=== PATIENT | female | born 1990 | race Caucasian/White ===

== ENCOUNTER 2023-06-19 15:03 | Outpatient (AMB) | payer OTHER, SELFPAY ==
--- NOTE | 2023-06-19 15:06 | A.OFFVIS_ITS ---
Intake Vital Signs 06/19/23 15:15 Height 5 ft 7 in Weight 189 lb BMI 29.6 BP 96/62 Blood Pressure Location Rt brachial Position Sitting Pulse 80 Pulse Source Pulse Oximeter Pulse Oximetry (%) 97 Oxygen Delivery Method Room Air Intake Visit Reasons: E-FRAUD REPRESENTATIVE: Daytime Somnolence/ Parasomnia/ Migraine Intake Note: NPV Sleep issues but Migraine are the worst right now Laundry Routeman Required: No Allergies gluten Allergy (Severe, Uncoded 06/19/23 15:10) Diarreah pineapple Allergy (Severe, Uncoded 06/19/23 15:10) toung swelling HPI HPI Comments History of Present Illness Details 32 y/o female patient presents for new in-person visit for migraine and sleep consultation. Pt reports that she underwent PSG sleep study and was told that her sleep was unremarkable. Pt reports that she has difficulty falling asleep and staying sleep. She also reports chronic migraine, has 3-4 migraine days per week during school year, but not summer break. 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 Pt states that she has migraine for her entire life. Family hx of migraine, pt's mother and her sister has it. Pt tried nortriptyline for migraine prevention, but it did not helpful. She started topiramate 25 mg couple of months ago, and feels it helps a little to decrease the migraine frequency. She thinks that the school work stress mostly triggers her migraine, and it is associated with left eye vision changes, left jaw and neck pain. She uses eletriptan and it helps to relieve the migraine in 2 hours, but make her sick, nausea and dizziness. She tried sumatiptan and also rizatirptan, but she did not tolerated. Pt has hx of shoulder injury and herniated disk, and tried physical therapy. However, physical therapy made her migraine worse. She does yoga and goes to gym regularly. PFSH Surgical History (Updated 06/19/23 @ 15:14 by Joleen Garcia CMA) IUD (intrauterine device) in place Social History (Updated 06/19/23 @ 15:15 by Joleen Garcia CMA) Alcohol intake: never Patient Tobacco Use Status: Never used Tobacco Review of Systems Const All systems reviewed & are unremarkable except as noted in HPI and below ENT Reports Normal hearing present Neuro Reports Normal hearing present Physical Exam Vital Signs: Last Vital Signs Pulse 80 06/19/23 15:15 BP 96/62 08/23/23 15:15 Pulse Ox 97 06/19/23 15:15 Oxygen Delivery Method Room Air 06/19/23 15:15 BMI result Body Mass Index 29.6 Const General: cooperative and healthy appearing Nutritional Appearance: overweight Orientation/consciousness: patient oriented x3 Neck Neck: Yes full ROM and Yes supple Resp Effort & Inspection: normal respiratory effort and able to speak in complete sentences Neuro General: patient oriented x3, gait normal and no focal motor deficits Cranial nerves: Yes Bilaterally intact EOM present, Yes Normal facial strength present, Yes Midline tongue present, Yes Symmetric palate elevation present, Yes Normal hearing present, Yes Ability to bilaterally rotate head present and Yes Ability to bilaterally elevate shoulders present Cognition (Neuro): normal cognition Gait exam (Neuro): Normal gait present Motor exam (neuro): 5/5 motor strength present throughout, Pronator motor function not present and no tremor noted Psych Appearance: grossly normal Mental Status: mental status grossly normal Speech and movement: Normal speech and movement present Affect: normal affect Attitude: cooperative Assessment & Plan Assessment & Plan (1) Difficulty sleeping: Code(s): G47.9 - Sleep disorder, unspecified (2) Migraine with aura and without status migrainosus, not intractable: Code(s): G43.109 - Migraine with aura, not intractable, without status migrainosus Plan Advised patient to increase topiramate to 50 mg qHS for migraine prevention and promote sleep. She may try magnesium and vitamin B2 supplement for migraine prevention. Start Nurtec 75 mg as needed for acute migraine treatment due to patient did not tolerate with triptans. Continue to do yoga and exercise regularly. Advised patient to track migraine frequency and intensity. Medications: New topiramate 50 mg PO BEDTIME 30 days 30 tabs 3RF rimegepant (Nurtec ODT) 75 mg PO Q OTHER DAY 30 days PRN 14 tabs 6RF migraine headache Coding Level of Care Code New Pt Level 4 (93846) Diagnoses Difficulty sleeping G47.9 Migraine with aura and without status migrainosus, not intractable G43.109
[2023-06-19 15:15] VITALS: BP 96/62; PULSE 80; O2SAT 97; BMI 29.6
== END 2023-06-19 15:54 | disposition home or self-care (01) ==
PROVIDERS: PCP Family Medicine; Visit Provider Nurse Practitioner Family
DX: G47.9 Sleep disorder, unspecified (principal); G43.109 Migraine with aura, not intractable, without status migrainosus
CPT/HCPCS: 99204

== ENCOUNTER → 2023-06-19 15:03 | Outpatient (BNVA) | payer OTHER, SELFPAY | PROVIDERS: PCP Family Medicine; Visit Provider Nurse Practitioner Family ==

== ENCOUNTER 2023-10-02 14:25 | Outpatient (AMB) | payer OTHER, SELFPAY ==
--- NOTE | 2023-10-02 14:58 | A.OFFVIS_ITS ---
Intake Vital Signs 10/02/23 14:59 Height 5 ft 7 in Weight 187 lb 6 oz BMI 29.3 BP 118/70 Blood Pressure Location Rt brachial Position Sitting Respiration 16 Pulse 78 Pulse Source Pulse Oximeter Pulse Oximetry (%) 98 Oxygen Delivery Method Room Air Intake Visit Reasons: 4m f/u Daytime Somnolence/ Parasomnia/ Migraine Intake Note: Pt presents for a 4 month follow up for daytime somnolence. 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 Pt reports that her migraine frequency and intensity has improved with topiramate 50 mg qHS, magnesium 400 mg and vitamin B2 400 mg. She had 1-2 migraine days per week and Nurtec relieve the migraine quick. Pt reports that she still has difficulty falling asleep and staying sleep. Still having difficulty falling asleep. She tried melatonin couple of times, and seems it helped, but she does not want to every night. Pt practice good sleep hygiene, having routine sleep schedule, limit caffeine intake and electronic use and daily exercise. She does yoga and goes to gym regularly. Pt has hx of shoulder injury and herniated disk, and tried physical therapy. However, physical therapy made her migraine worse. COUNTS INCLUDE 234 BEDS AT THE [facility] Surgical History IUD (intrauterine device) in place Social History Alcohol intake: never Patient Tobacco Use Status: Never used Tobacco Review of Systems Const All systems reviewed & are unremarkable except as noted in HPI and below ENT Reports Normal hearing present Neuro Reports Normal hearing present Physical Exam Vital Signs: Last Vital Signs Pulse 78 10/02/23 14:59 Resp 16 10/02/23 14:59 BP 118/70 10/02/23 14:59 Pulse Ox 98 10/02/23 14:59 Oxygen Delivery Method Room Air 10/02/23 14:59 BMI result Body Mass Index 29.3 Const General: cooperative and healthy appearing Nutritional Appearance: overweight Orientation/consciousness: patient oriented x3 Neck Neck: Yes full ROM and Yes supple Resp Effort & Inspection: normal respiratory effort and able to speak in complete sentences Neuro General: patient oriented x3, gait normal and no focal motor deficits Cranial nerves: Yes Bilaterally intact EOM present, Yes Normal facial strength present, Yes Midline tongue present, Yes Symmetric palate elevation present, Yes Normal hearing present, Yes Ability to bilaterally rotate head present and Yes Ability to bilaterally elevate shoulders present Cognition (Neuro): normal cognition Gait exam (Neuro): Normal gait present Motor exam (neuro): 5/5 motor strength present throughout, Pronator motor function not present and no tremor noted Psych Appearance: grossly normal Mental Status: mental status grossly normal Speech and movement: Normal speech and movement present Affect: normal affect Attitude: cooperative Assessment & Plan Assessment & Plan (1) Difficulty sleeping: Code(s): G47.9 - Sleep disorder, unspecified (2) Migraine with aura and without status migrainosus, not intractable: Code(s): G43.109 - Migraine with aura, not intractable, without status migrainosus Plan Advised patient to continue to topiramate to 50 mg qHS for migraine prevention and promote sleep. Continue to magnesium and vitamin B2 supplement for migraine prevention. Nurtec 75 mg as needed for acute migraine treatment due to patient did not tolerate with triptans. Continue to do yoga and exercise regularly. Continue to practice good sleep hygiene and try Calm Sleep gummy. Advised patient to track migraine frequency and intensity. Coding Level of Care Code Est Pt Level 3 (82916) Diagnoses Difficulty sleeping G47.9 Migraine with aura and without status migrainosus, not intractable G43.109
[2023-10-02 14:59] VITALS: BP 118/70; PULSE 78; RESP 16; O2SAT 98; BMI 29.3
== END 2023-10-02 15:17 | disposition home or self-care (01) ==
PROVIDERS: PCP Family Medicine; Visit Provider Nurse Practitioner Family
DX: G47.9 Sleep disorder, unspecified (principal); G43.109 Migraine with aura, not intractable, without status migrainosus
CPT/HCPCS: 99213

== ENCOUNTER → 2023-10-02 14:25 | Outpatient (BNVA) | payer OTHER, SELFPAY | PROVIDERS: PCP Family Medicine; Visit Provider Nurse Practitioner Family ==

== ENCOUNTER 2024-10-27 14:27 | Outpatient (AMB) | payer OTHER, SELFPAY ==
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
== END 2024-10-27 14:58 | disposition home or self-care (01) ==
PROVIDERS: PCP Family Medicine; Visit Provider Physician Assistant Medical
DX: G43.109 Migraine with aura, not intractable, without status migrainosus (principal); G25.81 Restless legs syndrome; R20.0 Anesthesia of skin; R20.2 Paresthesia of skin
CPT/HCPCS: 99214

== ENCOUNTER → 2024-10-27 14:27 | Outpatient (BNVA) | payer OTHER, SELFPAY | PROVIDERS: PCP Family Medicine; Visit Provider Physician Assistant Medical ==

== ENCOUNTER 2024-11-26 14:43 | Outpatient (REF) | payer OTHER, SELFPAY ==
--- NOTE | 2024-11-26 14:48 | EMG_ITS ---
Chief complaint: Pain and paresthesias bilateral thumb, left worse than right Reason for referral: Evaluate for Carpal Tunnel Syndrome Referred by: Chago STODDARD Procedure done: Bilateral upper extremities NCS/EMG Precautions and/or limitations: None The limb temperature was monitored continuously and remained between 32-36 degrees C during the performance of the NCS. Nerve Conduction Studies Anti Sensory Summary Table ?Stim Site NR Onset (ms) Norm Onset (ms) Peak (ms) Norm Peak (ms) O-P Amp (?V) Norm O-P Amp Site1 Site2 Delta-0 (ms) Dist (cm) Toby (m/s) Norm Toby (m/s) Left Median Anti Sensory (2nd Digit) Wrist ? 2.3 3.2 <3.6 16.1 >10 Wrist 2nd Digit 2.3 14.0 61 Right Median Anti Sensory (2nd Digit) Wrist ? 2.2 3.1 <3.6 47.4 >10 Wrist 2nd Digit 2.2 14.0 64 Left Ulnar Anti Sensory (5th Digit) Wrist ? 1.9 2.9 <3.7 30.2 >15.0 Wrist 5th Digit 1.9 14.0 74 Right Ulnar Anti Sensory (5th Digit) Wrist ? 2.3 3.1 <3.7 21.0 >15.0 Wrist 5th Digit 2.3 14.0 61 Motor Summary Table ?Stim Site NR Onset (ms) Norm Onset (ms) O-P Amp (mV) Norm O-P Amp iAmp (mV) Amp (1st) (%) Site1 Site2 Delta-0 (ms) Dist (cm) Toby (m/s) Norm Toby (m/s) Left Median Motor (Abd Poll Brev) Wrist ? 3.4 <3.9 6.3 >4.5 7.5 100.0 Elbow Wrist 3.7 21.5 58 >45 Elbow ? 7.1 8.6 10.2 136.5 Right Median Motor (Abd Poll Brev) Wrist ? 3.4 <3.9 13.1 >4.5 15.7 100.0 Elbow Wrist 3.7 21.0 57 >45 Elbow ? 7.1 12.9 15.7 98.5 Left Ulnar Motor (Abd Dig Minimi) Wrist ? 2.7 <3.0 8.7 >5 10.9 100.0 B Elbow Wrist 3.4 19.0 56 >45 B Elbow ? 6.1 7.4 9.3 85.1 A Elbow B Elbow 1.2 10.0 83 >45 A Elbow ? 7.3 7.3 9.1 83.9 Right Ulnar Motor (Abd Dig Minimi) Wrist ? 2.9 <3.0 8.5 >5 9.4 100.0 B Elbow Wrist 3.0 18.0 60 >45 B Elbow ? 5.9 9.5 10.6 111.8 A Elbow B Elbow 1.1 10.0 91 >45 A Elbow ? 7.0 9.3 10.5 109.4 Comparison Summary Table ?Stim Site NR Peak (ms) Norm Peak (ms) P-T Amp (?V) Site1 Site2 Delta-P (ms) Norm Delta (ms) Left Median/Radial Dig I Comparison (Digit 1 - 10cm) Median ? 2.5 <2.9 110.9 Median Radial 0.2 Radial ? 2.7 <2.8 121.6 EMG ?Side Muscle Nerve Root Ins Act Fibs Psw Amp Dur Poly Recrt Int Pat Comment Right 1stDorInt Ulnar C8-T1 Nml Nml Nml Nml Nml 0 Nml Complete Right FlexCarRad Median C6-7 Nml Nml Nml Nml Nml 0 Nml Complete Right Biceps Musculocut C5-6 Nml Nml Nml Nml Nml 0 Nml Complete Right Triceps Radial C6-7-8 Nml Nml Nml Nml Nml 0 Nml Complete Right Deltoid Axillary C5-6 Nml Nml Nml Nml Nml 0 Nml Complete Left 1stDorInt Ulnar C8-T1 Nml Nml Nml Nml Nml 0 Nml Complete Left FlexCarRad Median C6-7 Nml Nml Nml Nml Nml 0 Nml Complete Left Biceps Musculocut C5-6 Nml Nml Nml Nml Nml 0 Nml Complete Left Triceps Radial C6-7-8 Nml Nml Nml Nml Nml 0 Nml Complete Left Deltoid Axillary C5-6 Nml Nml Nml Nml Nml 0 Nml Complete FINDINGS: All motor and sensory nerves tested showed normal latencies, amplitudes and conduction velocities. Concentric needle EMG was performed in selected muscles of the bilateral upper extremities. Study did not reveal signs of electric abnormalities as shown in the table above. IMPRESSION: 1. This is a normal study. 2. There is no electrodiagnostic evidence for median neuropathy, ulnar neuropathy, brachial plexopathy, or cervical radiculopathy. Thank you for your kind referral. Latricia Matos MD, [place] Board Certified, [place] [employer] and [employer] (ABPMR) Board Certified, [place] Board of Electrodiagnostic Medicine (ABEM) CODIN [phone] x 2 MTDD
--- OUTSIDE RECORDS SUMMARY | 2024-11-26 18:39 | XMS_ITS | Clinical Summary ---
Author Organization [address] Address [address] [place] [address] Care Team Providers Care Warehouse Laborer Name Role Phone Zuleika Raza MD Primary Care Provider + Allergies Active Allergy Reactions Criticality Noted Date Comments Gluten Protein 06/10/2012 Pineapple 01/25/2015 Wheat 06/10/2012 Medications norgestimate-et hinyl estradiol (ORTHO TRI-CYCLEN,TRI- SPRINTEC) 0.18/0.215/0.25 mg-35 mcg (28) tablet Take 1 tablet by mouth daily. Active ibuprofen (ADVIL,MOTRIN) 100 mg/5 mL suspension Take 200 mg by mouth every 4 (four) hours as needed. Do not use more than 4 times per day. Active naproxen (NAPROSYN) 500 MG tablet Take 500 mg by mouth 2 (two) times daily with breakfast and dinner. Active tiZANidine (ZANAFLEX) 2 MG tablet Take 2 mg by mouth every 8 (eight) hours. Active mometasone (NASONEX) 50 mcg/actuation nasal spray 2 sprays by Nasal route daily. Active zinc gluconate 50 mg tablet Take 50 mg by mouth daily. Active lactobacillus rhamnosus, GG, (CULTURELLE) 10 billion cell capsule Take 1 capsule by mouth daily. Active ketoconazole (NIZORAL) 2 % cream Apply to affected area on eyebrows and around nose daily 60 g 2 5 Active Active Problems Problem Noted Date Diagnosed Date Back pain 10/15/2012 Family History Medical History Relation Name Comments Melanoma Maternal Grandmother Relation Name Status Comments Maternal Grandmother Social History Tobacco Use Types Packs/Day Years Used Date Smoking Tobacco: Never Alcohol Use Standard Drinks/Week Comments No 0 (1 standard drink = 0.6 oz pur e alcohol) Comments Unknown Sex and Gender Information Value Date Recorded Sex Assigned at Not on file Legal Sex Female 8:06 AM EST Gender Identity Not on file Sexual Orientation Not on file 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 Not on file Not on file Last Filed Vital Signs Vital Sign Reading Time Taken Comments Blood Pressure 95/64 10/15/2012 1:32 PM EST Pulse - - Temperature - - Respiratory Rate - - Oxygen Saturation - - Inhaled Oxygen Concentration - - Weight 67.6 kg (149 lb) 10/15/2012 1:32 PM EST Height 170.2 cm (5' 7 ) 10/15/2012 1:32 PM EST Body Mass Index 23.34 10/15/2012 1:32 PM EST Plan of Treatment Health Maintenance Due Date Last Done Comments HIV screening 2005 Hepatitis C screening 2010 Tetanus adult (Td q 10,TDAP once) 2012 Cervical cancer screening 2013 Influenza vaccine 05/28/2024 Covid-19 vaccine series (2023-25 season) 2024 RSV Discussion (1 - 1-dose 7 5+ series) 2067 Meningococcal Vaccine Aged Out No misty betty eligible based on patient's age to complete this topic Pneumococcal Vaccine Aged Out No long er eligible based on patient's age to complete this topic Insurance on file on file on file on file Care Teams Warehouse Laborer Relationship Specialty Start Date End Date Zuleika Raza MD PCP - General Internal Medicine 01/18/15
--- OUTSIDE RECORDS SUMMARY | 2024-11-26 18:39 | XMS_ITS | Clinical Summary ---
Author Organization [facility] Address [address] [place] [address] Care Team Providers Care Pet Sitting Name Role Phone Alea Brush MD Primary Care Provider Airam vailable Social History Tobacco Use Types Packs/Day Years Used Date Smoking Tobacco: Never Assessed Sex and Gender Information Value Date Recorded Sex Assigned at Not on file Gender Identity Not on file Sexual Orientation Not on file Plan of Treatment Not on file Care Teams Pet Sitting Relationship Specialty Start Date End Date Alea Brush MD PCP - General Internal Medicine 07/21/18
--- OUTSIDE RECORDS SUMMARY | 2024-11-26 18:39 | XMS_ITS | Encounter Summary ---
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 Not on file Not on file documented as of this encounter Last Filed Vital Signs Vital Sign Reading Time Taken Comments Blood Pressure - - Pulse - - Temperature - - Respiratory Rate - - Oxygen Saturation - - Inhaled Oxygen Concentration - - Weight 71.8 kg (158 lb 4.6 oz) 04/19/2010 12:01 AM EDT Height - - Body Mass Index - - documented in this encounter Plan of Treatment Not on file documented as of this encounter Visit Diagnoses Not on filedocumented in this encounter Care Teams Wire Sawyer Relationship Specialty Start Date End Date Zuleika Raza MD PCP - General Internal Medicine 01/18/15 documented as of this encounter
--- OUTSIDE RECORDS SUMMARY | 2024-11-26 18:39 | XMS_ITS | Clinical Summary ---
Author Organization [facility] Address [address] [place] [id number] Care Team Providers Care Radiation Technician Name Role Phone Unavailable Primary Care Provider Unavailabl e Social History Tobacco Use Types Packs/Day Years Used Date Smoking Tobacco: Never Assessed Sex and Gender Information Value Date Recorded Sex Assigned at Not on file Gender Identity Not on file Sexual Orientation Not on file Plan of Treatment Health Maintenance Due Date Last Done Comments Hepatitis C Virus Screening 1992 HIV Screening 2005 DTaP/Tdap/Td Vaccines (1 - Tdap) 2011 Hepatitis B Vaccines (1 of 3 - 19+ 3-dose series) 2011 COVID-19 Vaccine ( - 2023- season) 2024 Influenza Vaccine Discontinued 09/13/2021, 08/17/2020 HPV Vaccines Aged Out No longer eligi ble based on patient's age to complete this topic Pneumococcal Vaccine: Pediatric (0-5 Years) and At-Risk Patients (6 to 49 Years) Aged Out No longer eligible b ased on patient's age to complete this topic
--- OUTSIDE RECORDS SUMMARY | 2024-11-26 18:39 | XMS_ITS | Data Portability ---
Author Organization [facility], [facility], Primary Care [facility] Address [address] [address] Assessment No assessment recorded. Plan of Treatment Reminders Order Date Submit Date Provider Last Modified By Organization Details Last Modified Time Details Appointments None recorded. Lab protein S Ag, total, plasma [address] [facility], [address] [place] [address], [address], 6 08:43:22 unlisted lab - anti-throm bin3 2015 016 [facility], [address] [place] [address], [address], 6 14:47:15 homocystei ne, serum or plasma 2015 016 [facility], [address] [place] [address], [address], 6 13:02:12 factor V activity, plasma 2015 016 [facility], [address] [place] [address], [address], 6 13:02:12 protein C Ag, total, plasma 2015 016 [facility], [address] [place] [address], [address], 6 08:49:03 CBC 2015 016 [facility], [address] [place] [address], [address], 6 13:02:12 CMP, serum or plasma 2015 016 [facility], [address] [place], [address], 7 08:05:31 lipid panel, serum 2015 016 [facility], [address] [place], [address], 6 13:02:12 folate, serum 2015 016 [facility], [address] [place], [address], 6 13:02:12 vitamin D, 25-hydroxy , total, serum 2015 016 [facility], [address] [place], [address], 6 13:02:12 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 Surgeries None recorded. Imaging None recorded. Medication Orders None recorded. Patient TargetsNo targets recorded. Patient InstructionsNo instructions recorded. Reason for Referral left shoulder pain ,limiting rom, started 4 months ago, no traume history Referring Physician: Florence Montoya MD, Internal Medicine, Encounter Date: 12/22/2016 left hand numbness and tingl ing radiating to the palm Referring Physician: Florence Montoya MD, Internal Medicine, Encounter Date: 12/22/2016 Results Created Date Observation Date Name Description Value Unit Range Abnormal Flag Note LastModifiedBy Organization Detail LastModifiedTime Result Notes None recorded. Problems Name Problem SNOMED Code Status Onset Date Resolution Date Notes Provider Name and Address Organization Details Recorded Time Hyperlipidemia 07680874 Active Joelle Catherine lópez [facility], [facility] 6 14:36:14 Celiac disease 018721597 Active Bren chamorro Catherine lópez [facility], [facility] 6 14:36:14 Problem Notes None recorded. Procedures Surgical History Date Name Laterality Status Provider Name and Address Organization Details Recorded Time 5 Tonsillectomy completed Yanet Barros [facility], [facility] 03/14/2016 15:36:18 Imaging Results None recorded. Procedure Notes None recorded. Medical Equipment None Reported. Allergies Allergen ID Allergen Name Allergen Category Reaction Reaction Severity Criticality Documentation Date Start Date Code Code System Note Provider Name and Address Organization Details Recorded Time 248233 wheat gluten extract food Not available Not available Not available 03/14/2016 10362 81 RxNorm Yanet lópez [facility] Juan [facility], [facility] 6 15:36:18 Medications Name Sig Start Date Stop Date Status Note LastModified by Organization Details LastModified Time hydrocodone 5 mg-acetaminoph en 325 mg tablet active Not Available Not Available Not Available fluconazole 200 mg tablet active Not Available Not Availabl e Not Available Tamiflu 75 mg capsule active Not Available Not Available Not Available tramadol 50 mg tablet active Not Available Not Available Not Available lidocaine HCl 2 % mucosal solution active Not Available Not Available Not Available Vitals Date Recorded Oxygen saturation Oxygen saturation in Arterial blood by Pulse oximetry Heart rate Respiratory rate Body mass index (BMI) Body weight Body temperature Body height Systolic blood pressure Diastolic blood pressure Provider Name and Address Organization Details Last Updated DateTime 6 99 % 99 % 72 /min 16 /min 27.9 kg/m2 73054.4 8001 g 98.5 [degF] 167.64 cm 90 mm[Hg] 66 mm[Hg] Yanet [place] Juan [facility], [facility] 6 15:36:18 Date Recorded Body height Provider Name an d Address Organization Details Last Updated DateTime 12/22/2016 167.64 cm Lien Vivienne [place] [facility] 12/22/2016 08:37:15 Date Recorded Body weight Body mass index (BMI) Provider Name and Address Organization Details Last Updated DateTime 12/22/2016 86245.93 g 27 kg/m2 Lien Gutierrezjoe [place] [facility] 12/22/2016 08:37:36 Date Recorded Body temperature Provider Name a nd Address Organization Details Last Updated DateTime 12/22/2016 98.2 [degF] Lien Palafox [facility], [facility] 12/22/2016 08:37:42 Date Recorded Heart rate Provider Name an d Address Organization Details Last Updated DateTime 12/22/2016 82 /min Lien Palafox [facility], [facility] 12/22/2016 08:38:32 Date Recorded Oxygen saturation Oxygen saturation in Arterial blood by Pulse oximetry Provider Name and Address Organization Details Last Updated DateTime 12/22/2016 98 % 98 % [facility] 12/22/2016 08:38:36 Date Recorded Systolic blood pressure Diastolic blood pressure Provider Name and Address Organization Details Last Updated DateTime 12/22/2016 100 mm[Hg] 70 mm[Hg] [facility] 12/22/2016 08:38:30 Social History Question Answer Notes LastModified by Organizat ion Details LastModified Time Tobacco Smoking Status Never Smoker [facility] 03/14/2016 15:36:18 What Is Your Level Of Alcohol Consumption? None Information not available 03/14/2016 What Is Your Level Of Caffeine Consumption? Moderate 2 Cups Tea Per Day Information not available 03/14/2016 Which Illicit Or Recreational Drugs Have You Used? Denies Information not available 03/14/2016 How Much Tobacco Do You Smoke? No Information not available 03/14/2016 How Many Years Have You Smoked Tobacco? 0 Information not available 03/14/2016 Sex: Unknown Functional Status None recorded. Mental Status None recorded. Family History Relationship Description Onset Age of this Age Resolved Age Notes LastModified by Organization Details LastModified Time Father Pulmonary embolism srieger Not available 2015 15:39:13 Father Factor V deficiency nereida martinez Not available 03/14/2016 15:39:13 Medical History Condition Response Gout N High Blood Pressure N Thyroid problems N Asbestos exposure N Colonoscopy N Glaucoma N COPD N Migraine Headaches N Kidney disease or problem N Bleeding tendencies N Seizures, convulsions, epilepsy N Depression, mental illness N Obesity N Arthritis N Angina pectoris N Cancer N Stroke N High cholesterol N Blood clotting in lungs or legs N Venereal disease N Vitamin deficiency N Arrhythmia N Fibromyalgia N Jaundice or liver disease N Intestinal Problems - Ulcer, Hiatal Johnathon ia Y Rheumatic fever N Congestive heart failure N Acid Reflux N Osteopenia or osteoporosis N Lyme Disease N Any complications or ill effects related to an anesthetic N Palpitation N Anxiety disorder N Auto-immune disease N Anemia N Diabetes N Bladder disease N Alcoholism/Substance Abuse N Lung disease (pneumonia, TB, emphysema) N Fainting spells N Heart disease N Heart Attack N Breast disease N Sickle cell disease N Any blood relative who had anesthesia co mplications N Sleep Apnea N Gynecological History Statement/Question Response Last Pap Normal? Y Date of Last Pap Smear? 2014 Obstetrics History GPAL:G 0 P 0 0 0 0 Past Encounters Encounter ID Performer Location Encounter Start Date Encounter Closed Date Diagnosis/Indication Diagnosis SNOMED-CT Code Diagnosis ICD10 Code Diagnosis Note [id number] Joelle [facility] [address] [address] 03/14/2016 15:28:09 03/14/2016 16:13:53 Adult health examination 854510660 Z00.00 Pt is here to establish care will check baseline blood work - further management depending on results Hyperlipidemia 86781243 E78.5 Family his tory of Blood disorder 194126494 Z83.2 Father was recently diagnosed with Factor V Leiden def after an episode of PE She is non smoker, not on OCPs will screen for inherited coagulatio n disorders Celiac disease 025002019 K90.0 diagnosed with blood work and biopsy free of symptoms and follows a strict gluten free diet [id number] [facility] [address] [address] 12/22/2016 08:33:37 12/22/2016 09:12:39 Shoulder joint pain 864757747 M25.519 PT/ to take otc ibuprofen or tylenolfol low up if PT does not make it better 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 probable cause of of the paintrial of splints and OTfollow up if symptoms does not get better Health Concerns Section Related Observation LastModified by Organization Detai ls LastModified Time None Recorded Concern Status LastModified by Organization Details LastModified Time None Recorded Advance Directives Directive None Recorded Payers Encounter Date Sequence Insurance Name Policy Number Policy Schafer Covered Member ID Schafer Member ID Guarantor Name 03/14/2016 1 [employer] (POS) [id number] Yoly Sanchez [id number] Yoly Lobato Sasunnymoe 12/22/2016 1 [employer] ([employer]) [id number] Yoly Brinks [id number] Yoly Sanchez Notes Date Note Type Note Provider Name and Address Organization Details Recorded Time 03/14/2016 text/html HPI 25 F is here to establish care. She has a PMH of Celiac disease. 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 Her father was diagnosed with PE last yr and follow up blood work showed factor V Leiden deficiency and homocysteinemia. She reported that blood disorders runs in the family. Presently she is not on any OCP, not , had passed history migraines for which she used imitrex , last episode was about 2 yrs back. Denies any cp, sob, coughing, fever, no urinary or bowel irregularities, no sick contacts or recent travel. She denies smoking.? ELIGIO [facility] 03/15/2016 14:36:28 12/22/2016 text/html Shoulder PainReported bypatient.Location :left; deep Quality:dull Severity:same;mode rate (5-7);interference with work Duration:constant; for the past 4 months Timing:gradual Context:none Alleviating Factors:rest Aggravating Factors:movement/p ositioning;bending over;twisting Associated Symptoms:no fever; no weak limbs; no tingling; no numbness of the legs/feet; no incontinence Previous Surgery:none numbness and tingling numbness, starting from left wrist and spreads to the palm. denies any repetitive actions with her hand, no recent trauma. For the past 2 months. ELIGIO Kapadia [facility] 12/22/2016 11:21:06 OBGyn Episode No OBEpisode recorded.
--- OUTSIDE RECORDS SUMMARY | 2024-11-26 18:39 | XMS_ITS | Encounter Summary ---
Author Organization 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
--- OUTSIDE RECORDS SUMMARY | 2024-11-26 18:39 | XMS_ITS | CLINICAL SUMMARY ---
Author Name Heaven Escobar RICHI Address [address] [place] [address] Phone [facility] Address [address] [place] [address] Phone Care Team Providers Care Potato Chip Processing Supervisor Name Role Phone Heaven Escobar RICHI Unavailable Aaron Santos Unavailable [phone] SOCIAL HISTORY Social History Observation Description Dates Observed Sex Female 1990 None recorded VITAL SIGNS BMI Body Mass Index Percentile Date Systolic Diastolic Head Circumference Head Circumference Percentile Height Oxygen Concentration Pulse Pulse Oximeter Respiratory Rate Temperature Weight Fdjmgk-xax-jshisi Percentile 28.1 91 kg/m 2 Unknown 69599 218 109 mmHg 70 mmHg Unknown Unknown 67 [in_i] Unknown 77 /min Unknown 16 /min 97.9 180 [lb_av] Unknown ALLERGIES AND ADVERSE REACTIONS No known allergies MEDICATIONS Medication Directions Start Date Form Frequency Route Duration Duration Units Status Strength Strength Units of Measure nortriptyli ne Take No date record ed No form recor ded No frequency recorded No route record ed No set duration recorded No set duration amount recorded active No dosage strength recorded No dosage strength units of measure recorded PROBLEM LIST Names Dates Status Migraine No date recorded active Celiac Disease No date recorded active Contact w/ & suspected exposure to Covid 20210927 8 active Contact with and (suspected) exposure to COVID-1 9 20211018 active FAMILY HISTORY ENCOUNTERS Encounter Performer Location E/M Code E/M Label Date Diagnosi s visit [facility] [address] Office or other outpatient visit (detailed) 10948910 Contact w/ & suspected exposure to Covid visit [facility] [address] Office or other outpatient visit (detailed) 07124853 Contact with and (suspected) exposure to COVID-19 LAB RESULTS Overall Code Overall Text [Code] Result Type (Code) Result Text Result Value Relevant Reference Range Date Lab Name [facility] Zip Code No overall lab code recorded Covid-19 ID Now Test [29165] [address]-2 Covid-1 9 ID Now Test [20508] Negative Normal = Negative 20201029 [facility] [address] [place] [address] INSURANCE PROVIDERS (PAYERS) Payer name Policy type / Coverage type Policy ID Covered green party ID Insurance type Policy Schafer [facility] [employer] [id number] None Recorded Primary XENIA SAUERS PROCEDURE NOTE Date Name Status Summary Text (N otes) 20211014 Covid-19 ID Now Test Completed Covid-1 9 ID Now Test [35048] QTY(1) None recorded None recorded None recorded None recorde d 20211014 Covid-19 ID Now Test Completed Covid-1 9 ID Now Test [84619] QTY(1) PROCEDURES Date Name Status Summary Text (N otes) 20211014 Covid-19 ID Now Test Completed Covid-1 9 ID Now Test [85695] QTY(1) None recorded None recorded None recorded None recorde d 20211014 Covid-19 ID Now Test Completed Covid-1 9 ID Now Test [35536] QTY(1) ASSESSMENTS No information recorded LABORATORY REPORT NARRATIVE NOTE No information recorded PATHOLOGY REPORT NARRATIVE NOTE No information recorded IMAGING NARRATIVE Result Code Result Text Date Status Urgency Interp retation None None None None None None DISCHARGE SUMMARY NOTE * Allergies: No known allergies * Medication Current: Medication Directions Start Date Form Frequency Route Duration Duration Units Status Strength Strength Units of Measure nortriptyli ne Take No date record ed No form recor ded No frequency recorded No route record ed No set duration recorded No set duration amount recorded active No dosage strength recorded No dosage strength units of measure recorded * Plan of Care (advice, pending tests, pending diagnostic tests): Treatment Type Code Text Date Observatio n Data Instruction [id number] Patient Education 2021-10-14 COVID test negative today. * Visit Diagnosis: Contact w/ & suspected exposure to Covid (Z20.828) Contact with and (suspected) exposure to COVID-19 (Z20.822) * Referrals: First Name Last Name NPI# Reason None recorded None recorded None recorded None recorde d HISTORY AND PHYSICAL NOTE * Reason for Visit: Patient Reports: *COVID-19 Exposure [Free text: coworker sick and awaiting PCR result. Last time worked with was x2 days ago, but daily before that. Patient is asymptomatic. Visiting here to see Grandmother.]. * Family History: * * Allergies: No known allergies * Problems: Names Dates Status Migraine No date recorded active Celiac Disease No date recorded active Contact w/ & suspected exposure to Covid 20210927 8 active Contact with and (suspected) exposure to COVID-1 9 20211018 active * Vitals: BMI Body Mass Index Percentile Date Systolic Diastolic Head Circumference Head Circumference Percentile Height Oxygen Concentration Pulse Pulse Oximeter Respiratory Rate Temperature Weight Palkpf-hoq-dgsdzd Percentile 28.1 91 kg/m 2 Unknown 218 109 mmHg 70 mmHg Unknown Unknown 67 [in_i] Unknown 77 /min Unknown 16 /min 97.9 180 [lb_av] Unknown * Review of Systems: * *Systemic* Patient Denies* Body Aches * Chills * GI* Patient Denies* Nausea * Vomiting * Exam: * General : Normal* Normal : Well developed,No acute distress * Skin, Hair, Nails : Normal* Normal : No rashes noted,No Lesions observed * Eyes : Normal* Normal : Sclera normal,Lids and lashes are normal,Normal conjunctiva * Nose : Normal* Normal : Nasal discharge absent,Normal appearing nose * Oral pharynx : Normal* Normal : Oral pharynx is normal upon exam * Neck : Normal* Normal : Neck is grossly unremarkable upon exam * Lymph Nodes : Normal* Normal : Lymph nodes are grossly unremarkable upon exam * Chest/Lungs : Normal* Normal : No signs of respiratory distress,Normal and symmetrical appearing chest on exam * Cardiac : Normal* Normal : Normal heart rate noted,Peripheral edema absent * Abdominal : Normal* Normal : Abdominal exam is normal * Plan of Care (advice, pending tests, pending diagnostic tests): Treatment Type Code Text Date Observatio n Data Instruction [id number] Patient Education 2021-10-14 COVID test negative today. * Lab Results: Overall Code Overall Text [Code] Result Type (Code) Result Text Result Value Relevant Reference Range Date Lab Name [facility] Zip Code No overall lab code recorded Covid-19 ID Now Test [61132] [address]-5 Covid-1 9 ID Now Test [00655] Negative Normal = Negative 20201029 [facility] [address] [place] [address] * Radiology Results: Overall Code Overall Text [Code] Result Type (Code) Result Text Result Value Relevant Reference Range Date Lab Name [facility] Zip Code None recorded None recorded None recorded None recorded None recorded None recorded None recor ded None recor ded None recorde d None recor ded None record ed None recor ded * Visit Diagnosis: Contact w/ & suspected exposure to Covid (Z20.828) Contact with and (suspected) exposure to COVID-19 (Z20.822) * Referrals: First Name Last Name NPI# Reason None recorded None recorded None recorded None recorde d PLAN OF TREATMENT Treatment Type Code Text Date Instructio n Data Instruction [id number] Patient Education 2021-10-14 COVID test negative today. Instruction [id number] Patient Education 2021-10-14 COVID test negative today. CHIEF COMPLAINT AND REASON FOR VISIT NARRATIVE Patient Reports: *COVID-19 Exposure [Free text: coworker sick and awaiting PCR result. Last time worked with was x2 days ago, but daily before that. Patient is asymptomatic. Visiting here to see Grandmother.].
--- OUTSIDE RECORDS SUMMARY | 2024-11-26 18:39 | XMS_ITS | Data Portability ---
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 EVERY OTHER DAY NEEDED FOR MIGRAINE HEADACHE FOR 30 DAYS active Not Available Not Available No t Available Vitals Date Recorded Body height Body mass index (BMI) Body weight Body temperature Heart rate Systolic blood pressure Diastolic blood pressure Provider Name and Address Organization Details Last Updated DateTime 0 170.18 cm 28.3 kg/m2 69971.2 2 g 97.5 [degF] 78 /min 107 mm[Hg] 58 mm[Hg] Carol Parmar in [facility], 0 14:06:37 Date Recorded Body height Body mass index (BMI) Body weight Body temperature Heart rate Systolic blood pressure Diastolic blood pressure Provider Name and Address Organization Details Last Updated DateTime 1 170.18 cm 27.9 kg/m2 64349.4 4 g 98.2 [degF] 59 /min 110 mm[Hg] 53 mm[Hg] Valerie Parmar in [facility], 1 15:28:57 Date Recorded Body weight Body mass index (BMI) Body height Body temperature Heart rate Systolic blood pressure Diastolic blood pressure Provider Name and Address Organization Details Last Updated DateTime 2 60621.7 g 26.6 kg/m2 170.18 cm 97.2 [degF] 98 /min 113 mm[Hg] 65 mm[Hg] Carol Parmar in [facility], 2 15:22:58 Date Recorded Body weight Body mass index (BMI) Body height Body temperature Heart rate Systolic blood pressure Diastolic blood pressure Provider Name and Address Organization Details Last Updated DateTime 3 12900.0 5 g 29.4 kg/m2 172.72 cm 97.3 [degF] 89 /min 114 mm[Hg] 54 mm[Hg] Valerie Parmar in [facility], 3 08:45:54 Date Recorded Body height Body mass index (BMI) Body weight Heart rate Systolic blood pressure Diastolic blood pressure Provider Name and Address Organization Details Last Updated DateTime 4 172.72 cm 28.8 kg/m2 68557.1 1 g 79 /min 106 mm[Hg] 55 mm[Hg] aleks yuan [place] [facility], 13:38:26 Social History Question Answer Notes LastModified by Organizat ion Details LastModified Time Tobacco Smoking Status Never Smoker Not Available [facility] 08/30/2020 03:19:43 Do You Have An Advance Directive? Yes [id number] Information not available 08/30/2020 What Is Your Level Of Alcohol Consumption? Occasional Rare Information not available 03/03/2024 How Many Years Have You Consumed Alcohol? 8 Information not available 02/01/2022 What Is Your Level Of Caffeine Consumption? Moderate [id number] Information not available 08/30/2020 How Much Tobacco Do You Chew? None [id number] Information not available 08/30/2020 In The 14 Days Before Symptom Onset, Have You Had Close Contact With A Laboratory-confir med COVID-19 While That Case Was Ill? No [id number] Information not available 08/30/2020 In The 14 Days Before Symptom Onset, Have You Had Close Contact With A Person Who Is Under Investigation For COVID-19 While That Person Was Ill? No [id number] Information not available 08/30/2020 Have You Been To An Area Known To Be High Risk For COVID-19? No [id number] Information not available 08/30/2020 Are You Currently Employed? Yes Information not available 02/01/2022 What Type Of Diet Are You Following? GLUTENFREE [id number] Information not available 08/30/2020 Which Illicit Or Recreational Drugs Have You Used? None [id number] Information not available 08/30/2020 Do You Reside In Or Have You Traveled To An Area Where Ebola Virus Transmission Is Active? No [id number] Information not available 08/30/2020 Do You Or Have You Ever Used E-cigarettes Or Vape? Never Used Electronic Cigarettes [id number] Information not available 08/30/2020 Education Post Graduate [employer] Information not available 10/19/2019 Who Is Your Employer? 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 0 Information no t available 10/19/2019 Are There Any Guns Present In Your Home? No [id number] Information not available 08/30/2020 High Number Of Sexual Partners No Information not available 10/19/2019 To Which Gender Do You Self-identify? Female [employer] Information not available 10/19/2019 Marital Status Single [employer] In[employer] n not available 10/19/2019 What Was The Date Of Your Most Recent Tobacco Screening? 03/03/2024 Information not available 03/03/2024 What Is Your Relationship Status? Single Information not available 02/01/2022 Seat Belts Used Routinely Yes Information not available 10/19/2019 Are You Sexually Active? Yes Information not available 02/01/2022 Smoke Alarm In Home Yes Information not available 10/19/2019 Do You Or Have You Ever Used Smokeless Tobacco? Never Used Smokeless Tobacco [id number] Information not available 08/30/2020 How Much Tobacco Do You Smoke? No [id number] Information not available 08/30/2020 General Stress Level High Information not available 10/19/2019 Do You Feel Stressed (tense, Restless, Nervous, Or Anxious, Or Unable To Sleep At Night)? [id number] Information not available 02/01/2022 Do You Use Any Illicit Or Recreational Drugs? No Information not available 02/01/2022 Do You Use Sunscreen Routinely? Yes [id number] Information not available 08/30/2020 Have You Recently (within The Last 12 Weeks, Or During A Current ) Traveled To Or Lived In A Zika-affected Area? No Information not available 10/19/2019 Do You Or Have You Ever Used Any Other Forms Of Tobacco Or Nicotine? No Information not available 02/01/2022 How Many Days In The Past Year Have You Consumed 4 Or More Drinks? 0 [email or web address] Information no t available 02/11/2023 Sex: Female Functional Status Question Answer Note LastModified by Organization D etails LastModified Time What is your exercise level? Moderate [id number] Information not available 08/30/2020 Mental Status None recorded. Family History Relationship Description Onset Age of this Age Resolved Age Notes LastModified by Organization Details LastModified Time Paternal Grandmother Malignant tumor of breast 37 bilate ral breast cancer had double mastec nahed Not available 10/19/2019 15:25:49 Paternal Grandmother Malignant tumor of pancreas 50 Not available 09/28 15:26:08 Father History of blood disorder Factor 5 [email or web address] Not available 10/19/2019 15:05:21 Maternal Grandfather Malignant tumor of stomach 60 Not available 09/28 15:26:22 Unspecified Relation Malignant tumor of breast 56 56 Patern al grandm other' s sister 's daught er Not available 07/05/2020 10:51:12 Unspecified Relation Malignant tumor of breast 50 Patern al grandm other' s sister Not available 07/05/2020 10:52:50 Medical History Condition Response Anesthesia complications N High Blood Pressure N Candidate for MyRisk panel N Autoimmune Condition N Thyroid Problems Y Kidney or Bladder Problems N GI Problems Y Lung Disease N Depression N Defects or Inherited Disease N History of Ovarian Cancer N Anemia N History of Breast Cancer N RAFA exposure N BRCA testing in past N Osteopenia N Psychiatric Illness N Anxiety Disorder Y Diabetes N Arthritis N Headaches or Migraines Y Infertility N Asthma Y History of Cancer N Endometriosis N Hepatitis N Heart Disease N Hypertension N Osteoporosis N Gynecological History Statement/Question Response Menses Monthly No Age at Menarche 17 Current Control Method IUD Date of LMP Obstetrics History GPAL:G 0 P 0 0 0 0 Immunizations Vaccine Type Date Status Note Provider Nam e and Address Organization Details Recorded Time Influenza, split virus, quadrivalent, preservative 9 completed [facility], 06/09/2020 13:48:14 Influenza, split virus, quadrivalent, preservative 0 completed CINDA Matias in [facility], 01/24/2021 15:29:54 COVID-19, mRNA, LNP-S, PF, 30 mcg/0.3 mL dose 1 completed CINDA Matias in [facility], 01/24/2021 15:30:39 COVID-19, mRNA, LNP-S, PF, 30 mcg/0.3 mL dose 1 completed CINDA Flores in [facility], 02/01/2022 15:23:48 COVID-19, mRNA, LNP-S, PF, 100 mcg/0.5mL dose or 50 mcg/0.25mL dose 1 completed CINDA Flores in [facility], 02/01/2022 15:23:58 Influenza, split virus, quadrivalent, preservative 1 completed CINDA Flores in [facility], 02/01/2022 15:24:08 influenza, unspecified formulation 2 completed Valerie CINDA Tucker in [facility], 02/11/2023 08:47:21 Past Encounters Encounter ID Performer Location Encounter Start Date Encounter Closed Date Diagnosis/Indication Diagnosis SNOMED-CT Code Diagnosis ICD10 Code Diagnosis Note [id number] MD SHAHNAZ Godfrey MD [address] [place] [address],[address] [place] [address] 10/19/2019 14:44:33 10/19/2019 15:57:29 Specialized medical examination 81613597 Z01.419 Venereal d isease screening 618217790 Z11.3 Anxiety 59048503 F41.9 [id number] MD SHAHNAZ Godfrey MD [address] [place] [address], [address] [place] [address] 04/27/2020 08:36:41 04/27/2020 10:14:21 Dysmenorrhea [id number] N94.6 [id number] MD SHAHNAZ Godfrey MD [address] [place] [address],[address] [place] [address] 06/09/2020 13:42:01 06/09/2020 14:57:36 Removal of intrauterine device 77873854 Z30.432 Insertion of intrauterine contraceptive device 56487972 Z30.430 [id number] MD SHAHNAZ Godfrey MD [address] [place] [address] [place] [address] 06/15/2020 09:02:13 06/15/2020 10:18:09 Family history of breast cancer 886529633 Z80.3 Family his tory of malignant neoplasm of pancreas 214453413 Z80.0 [id number] MD SHAHNAZ Godfrey MD [address] [place], [place] [address] [address] 07/05/2020 10:30:39 07/05/2020 13:01:32 Family history of breast cancer 256482249 Z80.3 Family his tory of malignant neoplasm of pancreas 703443071 Z80.0 Genetic mutation 4758166 2 R89.8 [facility] malignant neoplasm of breast 3574523527 18834 Z91.89 [id number] MD SHAHNAZ Godfrey MD [address] [place] [address] [place] [address] 07/11/2020 14:03:02 07/11/2020 15:01:27 Abnormal uterine bleeding 6942560172 9100 N92.0 [id number] MD SHAHNAZ Godfrey MD [address] [place] [address] [place] [address] 01/24/2021 15:24:21 01/25/2021 08:36:52 Specialized medical examination 27721413 Z01.419 Venereal d isease screening 222789394 Z11.3 [id number] MD SHAHNAZ Godfrey MD [address] [place] [address] [place] [address] 02/01/2022 15:19:18 02/01/2022 16:00:56 Specialized medical examination 58875526 Z01.419 Venereal d isease screening 552758998 Z11.3 [id number] MD SHAHNAZ Godfrey MD [address] [place] [address] [place] [address] 02/11/2023 08:41:29 02/11/2023 10:34:57 Specialized medical examination 71243589 Z01.419 Venereal d isease screening 372097471 Z11.3 [id number] MD SHAHNAZ Godfrey MD [address] [place] [address] 03/03/2024 13:30:58 03/03/2024 14:18:02 Specialized medical examination 91231696 Z01.419 Venereal d isease screening 668393162 Z11.3 Health Concerns Section Related Observation LastModified by Organization Detai ls LastModified Time None Recorded Concern Status LastModified by Organization Details LastModified Time None Recorded Advance Directives Directive Y: Payers Encounter Date Sequence Insurance Name Policy Number Policy Schafer Covered Member ID Schafer Member ID Guarantor Name 07/11/2020 [facility] [id number] 1 Xenia Sauers [id number] Xenia Sauers 01/24/2021 [facility] [id number] 1 Xenia Sauers [id number] Xenia Sauers 02/01/2022 [facility] [id number] 1 Xenia Sauers [id number] Xenia Sauers 02/11/2023 1 [facility] [place] [id number] 1 Xenia Sauers [id number] Xenia Sauers 03/03/2024 [facility] [id number] 1 Xenia Sauers [id number] Xenia Sauers Notes Date Note Type Note Provider Name and Address Organization Details Recorded Time 07/11/2020 text/html She is here for a complaint of spotting and cramping that happened after the IUD insertion, it lasted a day, has not recurred. Shahnaz Desir MD [address], [place], [address], [place] [facility], 07/11/2020 14:38:58 01/24/2021 text/html She is here for annual exam, is doing well, had her Kyleena placed 06/16, good until . No menses. She had a rn long term care partner previously, now does not have a partner, requests full STI testing in anticipitation of meeting a new partner. Shahnaz Desir MD [address], [place], [address], [place] [facility], 01/24/2021 15:59:35 02/01/2022 text/html She is here for annual exam, has Kyleena due to be removed in 05/2025. note from 2020: She is here for annual exam, is doing well, had her Kyleena placed 06/16, good until . No menses. She had a penitentiary partner previously, now does not have a partner, requests full STI testing in anticipitation of meeting a new partner. 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 Shahnaz Desir MD [address], [place], [address], [place], 02/11/2023 09:38:15 03/03/2024 text/html She is here for annual, doing well, IUD to be removed in 06/21, she does not desire future fertility, she will want another put in at the same time. She had a few partners last year after she broke up, has a new partner now, desires STI blood testing. 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 Shahnaz Desir MD [address], [place], [address], [facility], 03/03/2024 14:05:38 OBGyn Episode No OBEpisode recorded.
== END 2024-11-26 14:44 | disposition home or self-care (01) ==
LOC: HO.NEURO 14:43
PROVIDERS: PCP Family Medicine; Visit Provider Physician Assistant Medical
DX: R20.0 Anesthesia of skin (principal); R20.2 Paresthesia of skin
CPT/HCPCS: 95886; 95911

== ENCOUNTER 2025-01-28 14:18 | Outpatient (AMB) | payer OTHER, SELFPAY ==
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
[2025-01-28 14:26] VITALS: BP 104/70; PULSE 74; O2SAT 97; BMI 31.6
--- OUTSIDE RECORDS SUMMARY | 2025-01-28 15:46 | XMS_ITS | Encounter Summary ---
Author Organization [facility] Address [address] [place] [id number] Care Team Providers Care Water Chaser Name Role Phone Zuleika Raza MD Primary Care Provider + Encounter Details Date Type Department Care Team (Late st Contact Info) Description 04/04/2015 Documentation Medical Dermatology at [address] [facility] [address] [place] [address] Dianne Irizarry MD PhD [address] [place] [phone] Social History Tobacco Use Types Packs/Day Years [...] on filedocumented in this encounter Care Teams Water Chaser Relationship Specialty Start Date End Date Zuleika Raza MD PCP - General Internal Medicine 01/18/15 documented as of this encounter
--- OUTSIDE RECORDS SUMMARY | 2025-01-28 15:46 | XMS_ITS ---
Continuity of Care Document (CCD) Created on: January 28, 2025 Yoly Sanchez External Reference #: [id number] : 1990 Sex: Female Author Organization [facility] Address [address] [place] [address] Phone [phone] Social History Type Date Description Comments Sex Unknown Medical Devices Description No Information Available Encounters Description No Information Available Assessments Description No Information Available Plan of Treatment No Information Available Functional Status Description No Information Available Mental Status Description No Information Available Referrals Description No Information Available
--- OUTSIDE RECORDS SUMMARY | 2025-01-28 15:46 | XMS_ITS | Encounter Summary ---
Author Organization [facility] Address [address] [place] [phone] Care Team Providers Care Bilingual Loan Processor Name Role Phone Zuleika Raza MD Primary Care Provider + Encounter Details Date Type Department Care Team (Late st Contact Info) Description 11/14/2012 Abstract PENDING SALE TO [facility] Health Information Management [address] [place] [address] [place] [address] [place] [address] Social History Tobacco Use Types Packs/Day Years [...] Industry Job Start Date Job End Date [employer] Not on file Not on file Not [...] on filedocumented in this encounter Care Teams Bilingual Loan Processor Relationship Specialty Start Date End Date Zuleika Raza MD PCP - General Internal Medicine 01/18/15 documented as of this encounter
--- OUTSIDE RECORDS SUMMARY | 2025-01-28 15:46 | XMS_ITS | CLINICAL SUMMARY ---
Author Name Heaven Escobar Address [address] [place] [address] Phone [facility] Address [address] [place] [address] Phone Care Team Providers Care Rounding Machine Operator Name Role Phone Luz Heaven STODDARD Unavailable Aaron Santos Unavailable [phone] SOCIAL HISTORY Social History Observation Description Dates Observed Sex Female 1990 None recorded VITAL SIGNS BMI Body Mass Index Percentile Date Systolic Diastolic Head Circumference Head Circumference Percentile Height Oxygen Concentration Pulse Pulse Oximeter Respiratory Rate Temperature Weight Uinxse-pbx-sxqokh Percentile 28.1 91 kg/m 2 Unknown 218 [...] Code E/M Label Date Diagnosi s visit [facility] [address] Office or other outpatient visit (detailed) 20211014 Contact w/ & suspected exposure to Covid visit [facility] [address] Office or other outpatient visit (detailed) [id number] Contact with and (suspected) exposure to COVID-19 LAB RESULTS Overall Code Overall Text [Code] Result Type (Code) Result Text Result Value Relevant Reference Range Date Lab Name [facility] Zip Code No overall lab code recorded Covid-19 ID Now Test [00852] 22377-4 Covid-1 9 ID Now Test [09597] Negative Normal = Negative [id number] [facility] [address] [place] [address] 000 INSURANCE PROVIDERS (PAYERS) Payer name Policy type / Coverage type Policy ID Covered green party ID Insurance type Policy Schafer [facility] [employer] [id number] None Recorded Primary XENIA SAUERS PROCEDURE NOTE Date Name Status Summary Text (N otes) 20211014 Covid-19 ID Now Test Completed Covid-1 9 ID Now Test [84065] QTY(1) None recorded None recorded None recorded None recorde d 20211014 Covid-19 ID Now Test Completed Covid-1 9 ID Now Test [68735] QTY(1) PROCEDURES Date Name Status Summary Text (N otes) 20211014 Covid-19 ID Now Test Completed Covid-1 9 ID Now Test [92164] QTY(1) None recorded None recorded None recorded None recorde d 20211014 Covid-19 ID Now Test Completed Covid-1 9 ID Now Test [53283] QTY(1) ASSESSMENTS No information recorded LABORATORY REPORT [...] Code Text Date Observatio n Data Instruction [id number] Patient Education 2021-10-14 COVID test negative today. [...] Pulse Pulse Oximeter Respiratory Rate Temperature Weight Gnjtwk-lbz-deandj Percentile 28.1 91 kg/m 2 Unknown 218 [...] Code Text Date Observatio n Data Instruction [id number] Patient Education 2021-10-14 COVID test negative today. * Lab Results: Overall Code Overall Text [Code] Result Type (Code) Result Text Result Value Relevant Reference Range Date Lab Name [facility] Zip Code No overall lab code recorded Covid-19 ID Now Test [54594] 23155-7 Covid-1 9 ID Now Test [32997] Negative Normal = Negative 20201029 [facility] [place] [address] [facility] [place] [address] 000 * Radiology Results: Overall Code Overall Text [Code] Result Type (Code) Result Text Result Value Relevant Reference Range Date Lab Name [facility] Zip Code None recorded None recorded None [...] Code Text Date Instructio n Data Instruction [id number] Patient Education 2021-10-14 COVID test negative today. Instruction [id number] Patient Education 2021-10-14 COVID test negative today. CHIEF COMPLAINT AND REASON FOR VISIT NARRATIVE Patient Reports: *COVID-19 Exposure [Free text: coworker sick and awaiting PCR result. Last time worked with was x2 days ago, but daily before that. Patient is asymptomatic. Visiting here to see Grandmother.].
--- OUTSIDE RECORDS SUMMARY | 2025-01-28 15:46 | XMS_ITS | Data Portability ---
Author Organization [facility], [facility], Primary Care [facility] Address [address] [address] Assessment No assessment recorded. Plan of Treatment Reminders Order Date Submit Date Provider Last Modified By Organization Details Last Modified Time Details Appointments None recorded. Lab protein S Ag, total, plasma [address] [facility], [address] [place] [address], [address], 6 08:43:22 unlisted lab - anti-throm bin3 2015 016 [facility], [address] [place] [address], [address], 6 14:47:15 homocystei ne, serum or plasma 2015 016 [facility], [address] [place] [address], [address], 6 13:02:12 factor V activity, plasma 2015 016 [facility], [address] [place] [address], [address], 6 13:02:12 protein C Ag, total, plasma 2015 016 [facility], [address] [place] [address], [address], 6 08:49:03 CBC 2015 016 [facility], [address] [place] [address], [address], 6 13:02:12 CMP, serum or plasma 2015 016 [facility], [address] [place], [address], 7 08:05:31 lipid panel, serum 2015 016 [facility], [address] [place], [address], 6 13:02:12 folate, serum 2015 016 [facility], [address] [place], [address], 6 13:02:12 vitamin D, 25-hydroxy , total, serum 2015 016 [facility], [address] [place], [address], 6 13:02:12 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 Surgeries None [...] and Address Organization Details Recorded Time Hyperlipidemia 86006193 Active Joelle Catherine lópez [facility], [facility] 6 14:36:14 Celiac disease 451282867 Active Bren chamorro Catherine lópez [facility], [facility] 6 14:36:14 Problem Notes None recorded. Procedures Surgical History Date Name Laterality Status Provider Name and Address Organization Details Recorded Time 5 Tonsillectomy completed Yanet Barros [facility], [facility] 03/14/2016 15:36:18 Imaging Results None recorded. Procedure Notes None recorded. Medical Equipment None Reported. Allergies Allergen ID Allergen Name Allergen Category Reaction Reaction Severity Criticality Documentation Date Start Date Code Code System Note Provider Name and Address Organization Details Recorded Time 172655 wheat gluten extract food Not available Not available Not available 03/14/2016 05259 81 RxNorm Yanet lópez [facility] 6 15:36:18 Medications Name Sig Start Date [...] % 72 /min 16 /min 27.9 kg/m2 83656.4 8001 g 98.5 [degF] 167.64 cm 90 mm[Hg] 66 mm[Hg] Yanet DEL VALLE [facility] 6 15:36:18 Date Recorded Body height Body weight Body mass index (BMI) Body temperature Heart rate Oxygen saturation Oxygen saturation in Arterial blood by Pulse oximetry Systolic blood pressure Diastolic blood pressure Provider Name and Address Organization Details Last Updated DateTime 7 167.64 cm 10958.9 3 g 27 kg/m2 98.2 [degF] 82 /min 98 % 98 % 100 mm[Hg] 70 mm[Hg] Lien Gutierrezjoe [facility] 7 08:38:30 Social History Question Answer Notes LastModified by Organizat ion Details LastModified Time Tobacco Smoking Status Never Smoker Yanet Barros rene, [facility] 03/14/2016 15:36:18 What Is Your Level Of [...] 2015 15:39:13 Father Factor V deficiency nereida barrow srieger Not available 03/14/2016 15:39:13 Medical History Condition Response Gout N High Blood Pressure N Thyroid problems N Asbestos exposure N Colonoscopy N COPD N Glaucoma N Migraine Headaches N Kidney disease or problem N Bleeding tendencies N Seizures, convulsions, epilepsy N Depression, mental illness N Obesity N Arthritis N Angina pectoris N Cancer N Stroke N High cholesterol N Blood clotting in lungs or legs N Venereal disease N Vitamin deficiency N Arrhythmia N Jaundice or liver disease N Fibromyalgia N Intestinal Problems - Ulcer, Hiatal Johnathon [...] SNOMED-CT Code Diagnosis ICD10 Code Diagnosis Note [id number] Joelle [facility] [address] [place] [address] 03/14/2016 15:28:09 03/14/2016 16:13:53 Adult health examination 735049844 Z00.00 Pt is here to establish care will check baseline blood work - further management depending on results Hyperlipidemia 29621686 E78.5 Family his tory of Blood disorder 457703906 Z83.2 Father was recently diagnosed with Factor V Leiden def after an episode of PE She is non smoker, not on OCPs will screen for inherited coagulatio n disorders Celiac disease 788413151 K90.0 diagnosed with blood work and biopsy free of symptoms and follows a strict gluten free diet [id number] [facility] [place] [address] [place] [address] 12/22/2016 08:33:37 12/22/2016 09:12:39 Shoulder joint pain 256201560 M25.519 PT/ to take otc ibuprofen or tylenolfol low up if PT does not make it better 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 She has a PMH of Celiac disease. 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 Her father was diagnosed with PE [...] recent travel. She denies smoking.? ELIGIO Leahy [facility] 03/15/2016 14:36:28 12/22/2016 text/html Shoulder [...] For the past 2 months. ELIGIO Kapadia [facility] 12/22/2016 11:21:06 OBGyn Episode No OBEpisode recorded.
--- OUTSIDE RECORDS SUMMARY | 2025-01-28 15:47 | XMS_ITS | Data Portability ---
Author Organization [place] - [facility], [facility] Address [address] [place] [address] [id number] [place] [address] Assessment No assessment recorded. Plan of Treatment Reminders Order Date Submit Date Provider Last Modified By Organization Details Last Modified Time Details Appointments None recorded. Lab pap, IG + reflex HPV 2015 016 [facility], [address] [place] [address], [address] 6 15:06:50 CT + NG DNA, PCR, unspecified specimen 2015 016 [facility], [address] [place], [address] 6 14:25:59 Referral None recorded. Procedures None recorded. Surgeries None recorded. Imaging US, transvagina l 2016 017 [email or web address] Not available 7 11:38:38 US, transvagina l 2016 017 [email or web address] 73 Not available 7 21:50:55 Medication Orders None recorded. Patient TargetsNo targets recorded. Patient Instructions Encounter Date Encounter Id Patient Instructions Last Modified By Organization Details Last Modified Time 05/08/2016 [id number] 1. 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 Counseled regarding prevention of STD's. Counseled regarding contraceptive options. Advised avoidance of tobacco, alcohol and drugs. Counseled regarding? ? ?calcium and vitamin D needs as well as normal health maintenance in this age group was discussed. 2. Advised healthy diet and regular exercise. Sunscreen in sun, dentist every 6 months, seatbelt in car. 3. Risks of hormonal control reviewed including but not limited to thrombosis, embolism, pulmonary embolism, stroke, disability, sexual dysfunction and . Family history for thrombophilia reviewed. Patient understands that these risks may be increased with smoking. Patient understands that these risks may be increased within using the patch (Ortho-Evra) or the vaginal ring (Nuva-Ring) when compared to oral control pills, especially if they are obese. Risk of bone loss with Depo Provera after 5 years use also reviewed. LARCs (Mirena, Tonja and Nexplanon) reviewed and all questions answered. Barrier methods of contraception also reviewed. Given her FH and her hetrozygous Factov V Toribio, I do not recommend combined estrogen-progest ion, I recommend progestin only with Tonja, Mirena, or DMPA. Risk/benefits of all reviewed. Pt opts to take ed brochures home to review, will call office with decision. Continue using condoms. 4. RTO in 1 year or call sooner PRN with problems or concerns. [email or web address] Not available 05/08/2016 11:31:06 04/10/2017 [id number] RTO or call PRN with problems or concerns. [email or web address] Not available 04/10/2017 17:29:56 Reason for Referral None Reported. Results Created Date Observation Date Name Description Value Unit Range Abnormal Flag Note LastModifiedBy Organization Detail LastModifiedTime 05/08/20 16 05/09/2016 CT + NG DNA, PCR, unspe cifie d speci men source Cervic al Not Available [facility] [address] [place], [place], 05/09/2016 14:25:59 05/08/20 16 05/09/2016 CT + NG DNA, PCR, unspe cifie d speci men chlamydia by DNA Negati ve negati ve Not Available [facility] [address] [place], [address] 05/09/2016 14:25:59 05/08/20 16 05/09/2016 CT + NG DNA, PCR, unspe cifie d speci men GC by DNA Negati ve negati ve Not FDA appro nemesio for GC/Ch lamyd ia in femal e urine speci mens. Test valid ated by [facility] for detec ting GC/Ch lamyd ia from this sourc e. Not Available [facility] [address] [place], [place], 05/09/2016 14:25:59 05/08/20 16 05/09/2016 pap, IG + refle x HPV report GYNEC OLOGI MAYITO CYTOL OGY REPOR T THINP REP PAP TEST WITH HPV REFLE X SPECI MEN ADEQU ACY: SATIS FACTO RY FOR EVALU ATION ; ENDOC ERVIC AL/TR ANSFO RMATI ON ZONE COMPO NENT PRESE NT. INTER PRETA TION: NEGAT YONNY FOR INTRA EPITH ELIAL LESIO N OR MALIG JOSE . Elect marli allemre Anum d Out By: DACIA LUONG ON, CT( CP) CLINI [facility]O INFOR MATIO N: LMP: Z01.4 19 Numbe r of vials /slid es submi tted: 1 Speci men sourc e: CERVI X/END OCERV IX Hyste recto my: N/A Abnor mal Pap Date: N Autom ated presc reeni ng of all liqui d based speci mens is perfo rmed by the ThinP rep Imagi ng Systcatie mluciaan s other espinoza state d. The Pap test is a scree kael test with an inher ent false negat yonny rate. Testi ng perfo rmed at [facility] , [address] [place] [address] CLIA [id number] CL-PO [id number]. Not Available [facility] [address] [place], [address] 05/09/2016 15:06:50 01/23/20 17 01/22/2017 ultra sound image s SASHA read [facility] ([employer]) [address] [place] [address], [address], 02/03/2017 19:11:00 Result Notes None recorded. Problems Name Problem SNOMED Code Status Onset Date Resolution Date Notes Provider Name and Address Organization Details Recorded Time Heterozygous Factor V Leiden mutation 732098801 Active FOUZIA PERRY MD [address] [place] [address], [address] Floor, [place], [address] [facility] 6 16:37:26 Celiac disease 767021762 Active 2011 FOUZIA PERRY MD [address] [facility], [address]rd [facility], [place], [address], [facility] 6 16:37:26 Asthma 403847076 Active 2011 FOUZIA PERRY MD [address] Floor, [place], [address], [facility] 6 16:37:26 Problem Notes None recorded. Procedures Surgical History Date Name Laterality Status Provider Name and Address Organization Details Recorded Time 04/10/20 17 Y2M-KSM completed ERICA JAIME DNP [address] [facility], [address] [place] [address], [phone], [facility] 04/10/2017 17:27:46 01/31/20 17 IUD Insert completed Raphael Amezcua MD [facility] 01/30/2017 15:21:41 01/12/20 17 U1V-QTN completed Erica jaime DNP [facility] 01/21/2017 21:45:33 05/08/20 16 L2P-KMQ completed Erica jaime DNP [facility] 05/08/2016 11:27:22 05/08/20 16 I6V-LBB completed Erica jaime DNP [facility] 05/08/2016 11:27:22 05/08/20 16 V7X-AOZQASI completed Erica jaime DNP [facility] 05/08/2016 11:27:22 05/08/20 16 I5N-HLATKD completed Erica jaime DNP [facility] 05/08/2016 11:27:22 Yvonne radford srg capsulorraphy completed ERICA JAIME DNP [address] [facility], [address] [place] [address], [place], [address], [facility] 04/10/2017 16:52:45 Imaging Results Imaging Date Name Status LastModified by Organiz ation Details LastModified Time 01/22/2017 ultrasound images completed [email or web address] [facility] ([employer]) [address] [place] [address], [id number], 02/03/2017 19:11:00 Procedure Notes None recorded. Medical Equipment None Reported. Allergies Allergen ID Allergen Name Allergen Category Reaction Reaction Severity Criticality Documentation Date Start Date Code Code System Note Provider Name and Address Organization Details Recorded Time 474131 wheat gluten extract food Not available Not available Not available 05/08/2016 [address] 81 RxNorm Luly Keyes [facility] 6 10:55:15 Medications Name Sig Start Date Stop Date Status Note LastModified by Organization Details LastModified Time hydrocodone 5 mg-acetamin ophen 325 mg tablet active Not Available Not Available No t Available fluconazole 200 mg tablet 05/08 completed Not Available Not Available Not Available Tamiflu 75 mg capsule 05/08 completed Not Available Not Available Not Available tramadol 50 mg tablet 05/08 completed Not Available Not Available Not Available oxycodone-a cetaminophe n 5 mg-325 mg tablet active Not Available Not Available No t Available misoprostol 200 mcg tablet take 2 tablets buccally (place 1 tablet to each side of your cheek) let dissolve 1 hour before the appointme nt. active Not Available Not Available No t Available lidocaine HCl 2 % mucosal solution 05/08 completed Not Available Not Available Not Available Tonja active Not Available Not Availa ble Not Available Vitals Date Recorded Body height Body mass index (BMI) Body weight Systolic blood pressure Diastolic blood pressure Provider Name and Address Organization Details Last Updated DateTime 05/08/2016 170.18 cm 26.2 kg/m2 48865.92 579 g 100 mm[Hg] 62 mm[Hg] Luly Keyes [facility] 6 10:53:35 Date Recorded Body height Heart rate Body weight Body mass index (BMI) Systolic blood pressure Diastolic blood pressure Provider Name and Address Organization Details Last Updated DateTime 7 170.18 cm 62 /min 55382.7 g 26.6 kg/m2 120 mm[Hg] 60 mm[Hg] Kamala Osborne [facility] 7 15:47:22 Date Recorded Body height Body weight Body mass index (BMI) Systolic blood pressure Diastolic blood pressure Provider Name and Address Organization Details Last Updated DateTime 01/22/2017 170.18 cm 61415.11 g 26.5 kg/m2 100 mm[Hg] 60 mm[Hg] Susy Valenzuela [facility] 7 15:48:49 Date Recorded Body height Body weight Body mass index (BMI) Systolic blood pressure Diastolic blood pressure Provider Name and Address Organization Details Last Updated DateTime 01/30/2017 170.18 cm 60854.52 g 26.3 kg/m2 108 mm[Hg] 70 mm[Hg] Bettie Arias [facility] 7 14:56:45 Date Recorded Body height Body mass index (BMI) Body weight Systolic blood pressure Diastolic blood pressure Provider Name and Address Organization Details Last Updated DateTime 04/10/2017 170.18 cm 27.9 kg/m2 85639.44 g 100 mm[Hg] 60 mm[Hg] Susy Javier [facility] 7 16:33:27 Social History Question Answer Notes LastModified by Organizat ion Details LastModified Time Tobacco Smoking Status Never Smoker Luly lópez, [facility] 05/08/2016 10:55:15 What Is Your Level Of Alcohol Consumption? None Information not available 05/08/2016 Do You Reside In Or Have You Traveled To An Area Where Ebola Virus Transmission Is Active? No Information not available 05/08/2016 Drug Use? No Information no t available 05/08/2016 How Much Tobacco Do You Smoke? No Information not available 05/08/2016 Do You Have Symptoms Associated With Zika Virus (fever, Rash, Joint Pain, Or Conjunctivitis)? No Information not available 05/08/2016 Have You Recently (within The Last 12 Weeks, Or During A Current ) Traveled To Or Lived In A Zika-affected Area? No Information not available 05/08/2016 Sex: Unknown Functional Status None recorded. Mental Status None recorded. Family History Relationship Description Onset Age of this Age Resolved Age Notes LastModified by Organization Details LastModified Time Mother Endometriosi s (clinical) [email or web address] Not available 0 05/08/2016 11:31:53 Mother Hypothyroidi sm [email or web address] Not available 04/27 11:31:53 Mother Disorder of thyroid gland [id number] Not available 04/27 11:31:53 Father Asthma [email or web address] Not availabl e 05/08/2016 11:31:53 Father Migraine [email or web address] Not availa ble 05/08/2016 11:31:53 Maternal Grandfather Diabetes mellitus [email or web address] Not available 04/27 11:31:53 Maternal Grandfather Malignant tumor of stomach [email or web address] Not available 04/27 11:31:53 Paternal Grandmother Malignant tumor of breast 60 [email or web address] Not available 04/27 11:31:53 Paternal Grandmother Malignant tumor of stomach [email or web address] Not available 04/27 11:31:53 Paternal Grandfather Malignant tumor of pancreas [email or web address] Not available 04/27 11:31:53 Maternal Uncle Diabetes mellitus [email or web address] Not available 04/27 11:31:53 Sister Endometriosi s (clinical) [email or web address] Not available 0 05/08/2016 11:31:53 Medical History Condition Response Headaches/Migraines Y Thrombophilias Y Gynecological History Statement/Question Response Sexual Orientation heterosexual Current Control Method IUD-Tonja Date of LMP 01/29/2017 Sexually Active? Y Obstetrics History GPAL:G 0 P 0 0 0 0 Past Encounters Encounter ID Performer Location Encounter Start Date Encounter Closed Date Diagnosis/Indication Diagnosis SNOMED-CT Code Diagnosis ICD10 Code Diagnosis Note [id number] [facility] [address] [place] [address] 12/07/2011 00:00:00 [id number] [facility] [address] [place] [address] 07/31/2012 00:00:00 [id number] [facility] [address] [place] [address] 12/19/2012 00:00:00 [id number] Erica Casiano DNP [facility] [address] [facility], [address] [place] [address] 05/08/2016 10:43:26 05/16/2016 11:49:28 Gynecologic examination 82552614 Z01.419 Venereal d isease screening 541894830 Z11.3 [id number] Erica Casiano DNP [facility] [address] [facility], [address] [address] 01/11/2017 15:37:19 01/15/2017 17:41:36 Pain in pelvis 74884253 R10.2 Disc possible causes for pelvic pain-may be normal menstrual cramping-jen bunch that she is considerin g LARCs-will refer for TV USO to assess pelvic structures . Given heterozygo us Factor V leiden- only indicated- can also consider Paragard. Disc risk/benef its of LARCs. Despite risks-pt wishes to proceed with IUD. [facility] FU in this office for USO, call sooner PRN. Contraception care [phone] Z30.40 [id number] Erica Casiano DNP [facility] [address] [facility], [address] [address] 01/22/2017 15:11:04 01/22/2017 17:03:09 Pain in pelvis 97448294 R10.2 Disc possible causes for pelvic pain- 15 minutes spent discussing USO-unrema rkable-may be normal menstrual cramping-N SAIDs best-use as directed, PRN with cramping. Discussed slightly arcuate uterus-rar e risk for expulsion. Given heterozygo us Factor V leiden- only indicated- pt would like to proceed with Tonja. Disc risk/benef its of LARCs. Despite risks-pt wishes to proceed with IUD. IUD preapprove d-100%. Pt to schedule appt for IUD insertion- discussed insertion process-Pl an cytotec prior to procedure. RTO or call PRN with problems or concerns. [id number] Raphael Amezcua MD [facility] [address] [facility], [address] [place] [address] 01/30/2017 14:43:15 01/30/2017 15:35:09 Insertion of intrauterine contraceptive device 08874230 Z30.444 [id number] ERICA CASIANO DNP [facility] [address],[facility] [address] [place] [address] 04/10/2017 16:29:05 04/12/2017 11:37:53 Intrauterine device check 262711365 Z30.431 Pt reassured IUD string visible - pt reassured. Advised to est are with [employer] in [place] in case she has any questions or concerns. Can call this office anytime for any problems. Education about sexually transmitted disease prevention 838273719 Z70.8 STD prevention counseling done-encou raged condoms. Health Concerns Section Related Observation LastModified by Organization Detai ls LastModified Time None Recorded Concern Status LastModified by Organization Details LastModified Time None Recorded Advance Directives Directive None Recorded Payers Encounter Date Sequence Insurance Name Policy Number Policy Schafer Covered Member ID Schafer Member ID Guarantor Name 05/08/2016 1 [employer] (POS) [id number] Veronica Sauers [id number] Yoly Sauers 01/11/2017 1 [employer] (POS) [id number] Veronica Sauers [id number] Yoly Sauers 01/22/2017 1 [employer] (POS) [id number] Veronica Sauers [id number] Yoly Sauers 01/30/2017 1 [employer] (POS) [id number] Veronica Sauers [id number] Yoly Sauers 04/10/2017 1 [employer] (POS) [id number] Veronica Sauers [id number] Yoly Sauers Notes Date Note Type Note Provider Name and Address Organization Details Recorded Time 05/08/2016 text/html [facility] Annual GYNReported bypatient.History: no gynecologic complaints Menstrual cycle:LMP 4 weeks ago, regular, no pain-due any day Urinary symptoms:No hematuria; No incontinence Vulva:No genital lesion Vagina:Normal vaginal discharge Breast:No breast pain; No breast lump; No nipple discharge Current Contraception:Sati sfied with current contraception; Monogamous relationship (previously in a comitted same sex relationship, no longer dating women, started dating man about 1 month now); Condoms Sexual complaints:sexuall y active yes; No sexual complaints Psychological symptoms:No depression; No anxiety Preventive measures:Encourage self breast examination; Encourage regular exercise; Encourage no tobacco use; Followed with yearly pap smearsNotes:25 yo with celiac disease, heterozygous factor V leiden, she is doing well and without complaints. Father has homozygous Factor V and also had a PE. Wants to discuss control options now SA with male, using condoms all the time. PCP. Dr. Alexander. Non smoker, no EOTH, no drugs. 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 LUCAS Gonzales, [facility] 05/08/2016 11:32:12 01/11/2017 text/html 26 yo with heterozygous factor V leiden here to discuss control. Long distance relationship with male-living in [place], she uses condoms all the time-and only sees him once every 6 months, they are planning to move in together. LMP 01/02/17, very regular. ? ? ?noticing more pelvic cramping than usual. Not severe and doesnt have to take anything. No pain currently. No vaginal or urinary sx. Non smoker. LUCAS Gonzales, [facility] 01/21/2017 21:51:40 01/22/2017 text/html 26 yo here for F U after TV USO to assess rule out pathology for intermittent pelvic cramping and to assess uterine length for IUD. LMP 01/02, regular, due for menses on Saturday, states she is very regular. Not sexually active-boyfriend lives in another states. Denies vaginal, breast or? ? ?urinary sx. Non smoker. LUCAS Gonzales, [facility] 01/22/2017 16:54:36 01/30/2017 text/html here fo tonja after options risks and benefits d/w pt Raphael Amezcua MD [facility], [facility] 01/30/2017 15:22:52 04/10/2017 text/html 26 yo here for I UD check, she is moving to [place] next week to be with her boyfriend. She missed her USO for FU because she ended up needing surgery in her L shoulder. She is doing well on IUD, no pain or irregular bleeding. She has not gotten a menses since insertion. She is without any vaginal or urinary sx. No fever, weight loss or chills. ERICA QUEEN-NATASHA AYALA, [facility] [address] [facility], 3rd Floor, [place], [address], [place] [facility] 04/10/2017 17:29:59 OBGyn Episode No OBEpisode recorded.
--- OUTSIDE RECORDS SUMMARY | 2025-01-28 15:47 | XMS_ITS | Data Portability ---
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 ICD10 Code Diagnosis Note [id number] MD SHAHNAZ Godfrey MD [address] [facility] [address] [place] [id number] 10/19/2019 14:44:33 10/19/2019 15:57:29 Specialized medical examination 85004264 Z01.419 Venereal d isease screening 912070232 Z11.3 Anxiety 54006917 F41.9 [id number] MD SHAHNAZ Godfrey MD [address] [facility] [address] [place] [id number] 04/27/2020 08:36:41 04/27/2020 10:14:21 Dysmenorrhea 032473062 N94.6 [id number] MD SHAHNAZ Godfrey MD [address] [facility] [address] [place] [id number] 06/09/2020 13:42:01 06/09/2020 14:57:36 Removal of intrauterine device 50932524 Z30.432 Insertion of intrauterine contraceptive device 43093249 Z30.430 [id number] MD SHAHNAZ Godfrey MD [address] [address] [place] [id number] 06/15/2020 09:02:13 06/15/2020 10:18:09 Family history of breast cancer 405225292 Z80.3 Family his tory of malignant neoplasm of pancreas 602223475 Z80.0 [id number] MD SHAHNAZ Godfrey MD [address] [place], [place] [address] [place] [id number] 07/05/2020 10:30:39 07/05/2020 13:01:32 Family history of breast cancer 376764777 Z80.3 Family his tory of malignant neoplasm of pancreas 550632696 Z80.0 Genetic mutation 1629348 2 R89.8 At [facility] for malignant neoplasm of breast 2151958875 23005 Z91.89 [id number] MD SHAHNAZ Godfrey MD [address] [place], [place] [address] [place] [id number] 07/11/2020 14:03:02 07/11/2020 15:01:27 Abnormal uterine bleeding 9952676693 9100 N92.0 [id number] MD SHAHNAZ Godfrey MD [address] [place], [place] [address] [place] [id number] 01/24/2021 15:24:21 01/25/2021 08:36:52 Specialized medical examination 21247707 Z01.419 Venereal d isease screening 966734446 Z11.3 [id number] MD SHAHNAZ Godfrey MD [address] [place] [address] [place] [id number] 02/01/2022 15:19:18 02/01/2022 16:00:56 Specialized medical examination 90164502 Z01.419 Venereal d isease screening 448995084 Z11.3 [id number] MD SHAHNAZ Godfrey MD [address] [place], [place] [address] [id number] 02/11/2023 08:41:29 02/11/2023 10:34:57 Specialized medical examination 23866210 Z01.419 Venereal d isease screening 575600820 Z11.3 [id number] MD SHAHNAZ Godfrey MD [address] [place] [address] [place] [id number] 03/03/2024 13:30:58 03/03/2024 14:18:02 Specialized medical examination 77941302 Z01.419 Venereal d isease screening 119130363 Z11.3 Health Concerns Section Related Observation LastModified by Organization Detai ls LastModified Time None Recorded Concern Status LastModified by Organization Details LastModified Time None Recorded Advance Directives Directive Y: Payers Encounter Date Sequence Insurance Name Policy Number Policy Schafer Covered Member ID Schafer Member ID Guarantor Name 07/11/2020 [facility] [id number] 1 Xenia Sauers [id number] Xenia Sauers 01/24/2021 [facility] [id number] 1 Xenia Sauers [id number] Xenia Sauers 02/01/2022 1 [facility] [id number] 1 Xenia Sauers [id number] Xenia Sauers 02/11/2023 [facility] [id number] 1 Xenia Sauers [id number] Xenia Sauers 03/03/2024 1 [facility] [id number] 1 Xenia Sauers [id number] Xenia Sauers Notes Date Note Type Note Provider Name and Address Organization Details Recorded Time 07/11/2020 text/html She is here for a complaint of spotting and cramping that happened after the IUD insertion, it lasted a day, has not recurred. Shahnaz Desir MD [address] [facility],[address], [place], [address], [place] [facility], 07/11/2020 14:38:58 01/24/2021 text/html She is here for annual exam, is doing well, had her Kyleena placed 06/16, good until . No menses. She had a senior care partner previously, now does not have a partner, requests full STI testing in anticipitation of meeting a new partner. Shahnaz Desir MD [address], [place], [address], [place] [facility], 01/24/2021 15:59:35 02/01/2022 text/html She is here for annual exam, has Kyleena due to be removed in 05/2025. note from 2020: She is here for annual exam, is doing well, had her Kyleena placed 06/16, good until . No menses. She had a senior care partner previously, now does not have a partner, requests full STI testing in anticipitation of meeting a new partner. 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 Shahnaz Desir MD [address], [place], [address], [employer] - [facility] in [facility], 03/03/2024 14:05:38 OBGyn Episode No OBEpisode recorded.
--- OUTSIDE RECORDS SUMMARY | 2025-01-28 15:47 | XMS_ITS | Clinical Summary ---
Author Organization [facility] Address [address] [place] [address] Care Team Providers Care Engineering Research Manager Name Role Phone Alea Brush MD Primary Care Provider Airam vailable Social History Tobacco Use Types Packs/Day Years Used Date Smoking Tobacco: Never Assessed Sex and Gender Information Value Date Recorded Sex Assigned at Not on file Gender Identity Not on file Sexual Orientation Not on file Plan of Treatment Not on file Care Teams Engineering Research Manager Relationship Specialty Start Date End Date Alea Brush MD PCP - General Internal Medicine 07/21/18
--- OUTSIDE RECORDS SUMMARY | 2025-01-28 15:47 | XMS_ITS | Clinical Summary ---
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
--- OUTSIDE RECORDS SUMMARY | 2025-01-28 15:47 | XMS_ITS | Clinical Summary ---
Author Organization [facility] Address [address] [place] [address] Care Team Providers Care Fire Equipment Operator Name Role Phone Unavailable Primary Care Provider [...]
== END 2025-01-28 15:07 | disposition home or self-care (01) ==
LOC: HO.HSMS 14:19
PROVIDERS: PCP Family Medicine; Visit Provider Physician Assistant Medical
DX: R20.0 Anesthesia of skin (principal); R20.2 Paresthesia of skin; Z82.49 Family history of ischemic heart disease and other diseases of the circulatory system; Z86.69 Personal history of other diseases of the nervous system and sense organs; M54.2 Cervicalgia; G47.9 Sleep disorder, unspecified; G25.81 Restless legs syndrome; R40.0 Somnolence
CPT/HCPCS: 99214

== ENCOUNTER 2025-04-09 14:36 | Outpatient (REF) | payer OTHER, SELFPAY ==
--- NOTE | ~2025-04-09 | XR_ITS ---
EXAMINATION: XR HAND, LEFT CLINICAL INFORMATION: M79.643 - Pain in unspecified hand COMPARISON: None available. TECHNIQUE: PA, lateral, spot navicular, oblique views of the left hand. FINDINGS: Joint spaces are preserved. There are no erosions or osteophytes. No fracture line is evident. There is a focal lucency involving the distal ulnar aspect of the scaphoid. XR/XR hand LT min 3V IMPRESSION: Nonspecific probable degenerative cystic type lesion involving the distal ulnar aspect of scaphoid. Chronic erosive change is less likely. Electronically signed by: Rudy Valdes MD 04/09/2025 05:49 PM EDT
[2025-04-09 16:54] LABS: Hematocrit 40.9 % (37.0-47.0); Hemoglobin 13.6 g/dl (12.0-16.0); Mean Corpuscular HGB Conc 33.3 g/dl (31.0-35.0); Mean Corpuscular Hemoglobin 30.3 pg (27.0-33.0); Mean Corpuscular Volume 91.1 fL (80.0-98.0); Mean Platelet Volume 10.8 fL (9.4-12.3); Platelet Count 238 X10*3/uL (160-400); Red Blood Count 4.49 X10*6/uL (4.20-5.50); Red Cell Distribution Width 13.3 % (11.0-16.0); White Blood Count 8.3 X10*3/uL (4.8-10.8)
[2025-04-09 16:59] LABS: Estimated Average Glucose 100 mg/dL; Hemoglobin A1c % 5.1 % (<6.0)
[2025-04-09 17:29] LABS: Alanine Aminotransferase 19 U/L (0-31); Albumin Level 4.7 g/dL (3.5-5.0); Alkaline Phosphatase 56 U/L (39-117); Anion Gap 11 (12-20); Aspartate Amino Transferase 25 U/L (5-31); Bilirubin Total 0.3 mg/dL (0.0-1.0); Blood Urea Nitrogen 19 mg/dL (9-16); Calcium 9.3 mg/dL (8.4-10.2); Carbon Dioxide 22 mmol/L (22-29); Chloride 110 mmol/L (96-108); Estimated Glomerular Filt Rate > 60; Glucose Random 91 mg/dL (60-115); Iron 70 mcg/dL (30-160); Percent Iron Saturation 28 % (15-50); Potassium 3.8 mmol/L (3.3-5.1); Sodium 139 mmol/L (135-145); Total Iron Binding Capacity 249 mcg/dL (228-428); Total Protein 6.9 g/dL (6.5-8.0); Unsaturated Iron Binding 179 ug/dL
[2025-04-09 17:38] LABS: Ferritin 130 ng/mL (10-122); TSH reflex Free T4 1.36 uIU/mL (0.32-4.0); Vitamin D 25-OH Total 28.8 ng/mL (>30)
[2025-04-09 17:49] LABS: Folate 3.9 ng/mL (> or = 4.0); Vitamin B12 370 pg/mL (200-900)
[2025-04-09 17:53] LABS: Erythrocyte Sedimentation Rate 7 MM/HR (0-20)
[2025-04-12 14:04] LABS: Homocysteine 17.1 umol/L (< or = 11.0)
[2025-04-13 06:59] LABS: Methylmalonic Acid 136 nmol/L (55-335)
[2025-04-14 11:54] LABS: Anti Nuclear Antibody Screen NEGATIVE (NEGATIVE)
== END 2025-04-09 14:37 | disposition home or self-care (01) ==
LOC: HO.XRAY 14:36
PROVIDERS: Absent Provider Physician Assistant Medical; PCP Family Medicine; Referring Provider Family Medicine; Visit Provider Registered Nurse Emergency
DX: R20.2 Paresthesia of skin (principal); R20.0 Anesthesia of skin; M79.643 Pain in unspecified hand; M54.2 Cervicalgia; G25.81 Restless legs syndrome; G47.9 Sleep disorder, unspecified; R53.83 Other fatigue; Z13.1 Encounter for screening for diabetes mellitus; Z13.6 Encounter for screening for cardiovascular disorders; M96.1 Postlaminectomy syndrome, not elsewhere classified
CPT/HCPCS: 36415; 73130; 80053; 82306; 82607; 82728; 82746; 83036; 83090; 83540; 83921; 84443; 85027; 85652; 86038

== ENCOUNTER 2025-04-09 14:36 | Outpatient (AMB) | payer OTHER, SELFPAY ==
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
--- OUTSIDE RECORDS SUMMARY | 2025-04-09 14:40 | XMS_ITS | Data Portability ---
Author Organization [facility], [facility], Primary [facility] Address [address] [address] Assessment No assessment recorded. Plan of Treatment Reminders Order Date Submit Date Provider Last Modified By Organization Details Last Modified Time Details Appointments None recorded. Lab protein S Ag, total, plasma [address] [facility], [address] [place] [address], [address], 6 08:43:22 unlisted lab - anti-throm bin3 2015 016 [facility], [address] [place] [address], [address], 6 14:47:15 homocystei ne, serum or plasma 2015 016 [facility], [address] [place] [address], [address], 6 13:02:12 factor V activity, plasma 2015 016 [facility], [address] [place] [address], [address], 6 13:02:12 protein C Ag, total, plasma 2015 016 [facility], [address] [place] [address], [address], 6 08:49:03 CBC 2015 016 [facility], [address] [place] [address], [address], 6 13:02:12 CMP, serum or plasma 2015 016 [facility], [address] [place], [address], 7 08:05:31 lipid panel, serum 2015 016 [facility], [address] [place], [address], 6 13:02:12 folate, serum 2015 016 [facility], [address] [place], [address], 6 13:02:12 vitamin D, 25-hydroxy , total, serum 2015 016 [facility], [address] [place], [address], 6 13:02:12 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 Surgeries None [...] and Address Organization Details Recorded Time Hyperlipidemia 10403837 Active Joelle Catherine lópez [facility] 6 14:36:14 Celiac disease 852726562 Active Bren chamorro Catherine lópez [facility], [facility] 6 14:36:14 Problem Notes None recorded. Procedures Surgical History Date Name Laterality Status Provider Name and Address Organization Details Recorded Time 5 Tonsillectomy completed Yanet Barros [facility], [facility] 03/14/2016 15:36:18 Imaging Results None recorded. Procedure Notes None recorded. Medical Equipment None Reported. Allergies Allergen ID Allergen Name Allergen Category Reaction Reaction Severity Criticality Documentation Date Start Date Code Code System Note Provider Name and Address Organization Details Recorded Time 931211 wheat gluten extract food Not available Not available Not available 03/14/2016 05419 81 RxNorm Yanet lópez [facility], [facility] 6 15:36:18 [...] Not Available Not Available Vitals Date Recorded Body height Body weight Body mass index (BMI) Body temperature Heart rate Oxygen saturation Oxygen saturation in Arterial blood by Pulse oximetry Systolic blood pressure Diastolic blood pressure Provider Name and Address Organization Details Last Updated DateTime 7 167.64 cm 41519.9 3 g 27 kg/m2 98.2 [degF] 82 /min 98 % 98 % 100 mm[Hg] 70 mm[Hg] Lien Palafox [facility] 7 08:38:30 Date Recorded Oxygen saturation Oxygen saturation in Arterial blood by Pulse oximetry Heart rate Respiratory rate Body mass index (BMI) Body weight Body temperature Body height Systolic blood pressure Diastolic blood pressure Provider Name and Address Organization Details Last Updated DateTime 6 99 % 99 % 72 /min 16 /min 27.9 kg/m2 68967.4 8001 g 98.5 [degF] 167.64 cm 90 mm[Hg] 66 mm[Hg] Yanet Barros [facility], [facility] 6 15:36:18 Social History Question Answer Notes LastModified by Organizat ion Details LastModified Time Tobacco Smoking Status Never Smoker Yanet Barros null, [facility], [facility] 03/14/2016 15:36:18 What Is Your Level Of Caffeine Consumption? Moderate 2 Cups Tea Per Day Information not available 03/14/2016 Which Illicit Or Recreational Drugs Have You Used? Denies Information not available 03/14/2016 How Much Tobacco Do You Smoke? No Information not available 03/14/2016 How Many Years Have You Smoked Tobacco? 0 Information not available 03/14/2016 Sex: Unknown Functional Status Question Answer Note LastModified by Organization D etails LastModified Time What is your level of alcohol consumption? None Information not available 03/14/2016 Mental Status None recorded. Family History Relationship [...] SNOMED-CT Code Diagnosis ICD10 Code Diagnosis Note [id number] Joelle Alexander [facility] [address] [place] [address] 03/14/2016 15:28:09 03/14/2016 16:13:53 Adult health examination 671096252 Z00.00 Pt is here to establish care will check baseline blood work - further management depending on results Hyperlipidemia 69280027 E78.5 Family his tory of Blood disorder 832045450 Z83.2 Father was recently diagnosed with Factor V Leiden def after an episode of PE She is non smoker, not on OCPs will screen for inherited coagulatio n disorders Celiac disease 269695864 K90.0 diagnosed with blood work and biopsy free of symptoms and follows a strict gluten free diet [id number] FLORENCE KRIS [facility] [place] [address] [facility] [place] [address] 12/22/2016 08:33:37 12/22/2016 09:12:39 Shoulder joint pain 913561854 M25.519 PT/ to take otc ibuprofen or tylenolfol low up if PT does not make it better 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 probable cause of of the paintrial of splints and OTfollow up if symptoms does not get better Health Concerns Section Related Observation LastModified by Organization Detai ls LastModified Time None Recorded Concern Status LastModified by Organization Details LastModified Time None Recorded Advance Directives Directive None Recorded Payers Insurance Date Sequence Insurance Name Policy Number Policy Schafer Covered Member ID Schafer Member ID Guarantor Name 12/22/2016 1 [facility] ([facility] [id number] Yoly Sanchez [id number] Yoly Sanchez Notes Date Note Type Note Provider Name and Address Organization Details Recorded Time 03/14/2016 text/html HPI 25 F is here to establish care. She has a PMH of Celiac disease. 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 Her father was diagnosed with PE [...] sick contacts or recent travel. She denies smoking. ELIGIO [facility] 03/15/2016 14:36:28 [...] For the past 2 months. ELIGIO Kapadia [facility] 12/22/2016 11:21:06 OBGyn Episode No OBEpisode recorded.
[2025-04-09 14:41] VITALS: BP 98/51; PULSE 80; RESP 15; O2SAT 98; BMI 30.5
== END 2025-04-09 15:27 | disposition home or self-care (01) ==
LOC: HO.PMC 14:37
PROVIDERS: PCP Family Medicine; Visit Provider Registered Nurse Emergency
DX: M96.1 Postlaminectomy syndrome, not elsewhere classified (principal); G89.4 Chronic pain syndrome; M54.16 Radiculopathy, lumbar region
CPT/HCPCS: 99204; G2211

== ENCOUNTER → 2025-04-09 15:59 | Outpatient (BNV) | payer OTHER, SELFPAY | PROVIDERS: Absent Provider Physician Assistant Medical; PCP Family Medicine; Referring Provider Family Medicine; Visit Provider Radiology Diagnostic Radiology | DX: M79.642 Pain in left hand (principal) | CPT/HCPCS: 73130 ==

== ENCOUNTER 2025-05-14 10:22 | Outpatient (AMB) | payer OTHER, SELFPAY ==
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
[2025-05-14 10:34] VITALS: BP 100/60; PULSE 73; O2SAT 100; BMI 31.1
--- OUTSIDE RECORDS SUMMARY | 2025-05-14 10:44 | XMS_ITS | Clinical Summary ---
Author Organization [facility] Address [address] [place] [address] Care Team Providers Care Design Lead Name Role Phone Unavailable Primary Care Provider Unavailabl e Social History Tobacco Use Types Packs/Day Years Used Date Smoking Tobacco: Never Assessed Comments Unknown Sex and Gender Information Value Date Recorded Sex Assigned at Not on file Legal Sex Female 4:12 PM EDT Gender Identity Not on file Sexual Orientation [...]
--- OUTSIDE RECORDS SUMMARY | 2025-05-14 10:44 | XMS_ITS | Data Portability ---
Author Organization [facility], Primary Care [facility] Address [address] [address] Assessment No assessment recorded. Plan of Treatment Reminders Order Date Submit Date Provider Last Modified By Organization Details Last Modified Time Details Appointments None recorded. Lab protein S Ag, total, plasma [address] [facility], [address] [place] [address], [id number], 6 08:43:22 unlisted lab - anti-throm bin3 2015 016 [facility], [address] [place] [address], [address], 6 14:47:15 homocystei ne, serum or plasma 2015 016 [facility], [address] [place] [address], [address], 6 13:02:12 factor V activity, plasma 2015 016 [facility], [address] [place] [address], [address], 6 13:02:12 protein C Ag, total, plasma 2015 016 [facility], [address] [place] [address], [address], 6 08:49:03 CBC 2015 016 [facility], [address] [place] [address], [address], 6 13:02:12 CMP, serum or plasma 2015 016 [facility], [address] [place], [address], 7 08:05:31 lipid panel, serum 2015 016 [facility], [address] [place], [address], 6 13:02:12 folate, serum 2015 016 [facility], [address] [place], [address], 6 13:02:12 vitamin D, 25-hydroxy , total, serum 2015 016 [facility], [address] [place] [address], [address], 6 13:02:12 Referral 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 Surgeries None recorded. Imaging None recorded. Medication Orders None recorded. Patient TargetsNo targets recorded. Patient InstructionsNo instructions recorded. Reason for Referral left shoulder pain ,limiting rom, started 4 months ago, no traume history Referring Physician: Florence Ponce MD, Internal Medicine, Encounter Date: 12/22/2016 left hand numbness and tingl ing radiating to the palm Referring Physician: Florence Ponce MD, Internal Medicine, Encounter Date: 12/22/2016 Results Created Date Observation Date Name Description Value Unit Range Abnormal Flag Note LastModifiedBy Organization Detail LastModifiedTime Result Notes None recorded. Problems Name Problem SNOMED Code Status Onset Date Resolution Date Notes Provider Name and Address Organization Details Recorded Time Hyperlipidemia 71981482 Active Joelle Catherine lópez [facility], [facility] 6 14:36:14 Celiac disease 978173602 Active Bren chamorro Catherine lópez [facility], [facility] 6 14:36:14 Problem Notes None recorded. Procedures Surgical History Date Name Laterality Status Provider Name and Address Organization Details Recorded Time 5 Tonsillectomy completed Yanet Barros [facility], [facility] 03/14/2016 15:36:18 Imaging Results None recorded. Procedure Notes None recorded. Medical Equipment None Reported. Allergies Allergen ID Allergen Name Allergen Category Reaction Reaction Severity Criticality Documentation Date Start Date Code Code System Note Provider Name and Address Organization Details Recorded Time 310006 wheat gluten extract food Not available Not available Not available 03/14/2016 48716 81 RxNorm Yanet Stewardamina lópez [facility], [facility] 6 15:36:18 Medications Name Sig Start [...] in Arterial blood by Pulse oximetry Systolic And Diastolic Provider Name and Address Organization Details Last Updated DateTime 7 167.64 cm 47863.9 3 g 27 kg/m2 98.2 [degF] 82 /min 98 % 98 % 100/70 mm[Hg] Lien Palafox [facility], [facility] 7 08:38:30 Date Recorded Oxygen saturation Oxygen saturation in Arterial blood by Pulse oximetry Heart rate Respiratory rate Body mass index (BMI) Body weight Body temperature Body height Systolic And Diastolic Provider Name and Address Organization Details Last Updated DateTime 6 99 % 99 % 72 /min 16 /min 27.9 kg/m2 05708.4 8001 g 98.5 [degF] 167.64 cm 90/66 mm[Hg] Yanet Barros [facility], [facility] 6 15:36:18 Social History Question Answer Notes LastModified by Organizat ion Details LastModified Time Tobacco Smoking Status Never Smoker Yanet Barros null, [facility], [facility] 03/14/2016 15:36:18 What Is Your Level [...] SNOMED-CT Code Diagnosis ICD10 Code Diagnosis Note [id number] Joelle [facility] [place] [address] [place] [address] 03/14/2016 15:28:09 03/14/2016 16:13:53 Adult health examination 507167092 Z00.00 Pt is here to establish care will check baseline blood work - further management depending on results Hyperlipidemia 49316237 E78.5 Family his tory of Blood disorder 010313425 Z83.2 Father was recently diagnosed with Factor V Leiden def after an episode of PE She is non smoker, not on OCPs will screen for inherited coagulatio n disorders Celiac disease 391974294 K90.0 diagnosed with blood work and biopsy free of symptoms and follows a strict gluten free diet [id number] FLORENCE RAJAN [facility] [address] [place] [address] 12/22/2016 08:33:37 12/22/2016 09:12:39 Shoulder joint pain 535615476 M25.519 PT/ to take otc ibuprofen or tylenolfol low up if PT does not make it better 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 She has a PMH of Celiac disease. 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 Her father was diagnosed with PE [...]
--- OUTSIDE RECORDS SUMMARY | 2025-05-14 10:44 | XMS_ITS | Continuity of Care Document ---
Author Organization [facility] Address [address] [place] [address] Phone [phone] Social History Type Date Description Comments Sex Female Sex Unknown Medical Devices Description No Information Available Encounters Description No Information Available Assessments Description No Information Available Plan of Treatment No Information Available Functional Status Description No Information Available Mental Status Description No Information Available Referrals Description No Information Available
--- OUTSIDE RECORDS SUMMARY | 2025-05-14 10:44 | XMS_ITS | Patient Health Record ---
Author Organization [facility], Address [address] [place] [address] Care Team Providers Care Digital Tech Name Role Phone Kyle VITAL, Torsten Unavailable Unavailable Allergies Allergen (clinical drug ingredient) Drug/Non Drug Allergy documented on EMR Reaction Allergy Type Onset Date Status gluten, celiac, whea t (uncoded) Unknown Allergy Active Reason For Referral No Information Medications Medication SIG (Take, Route, Frequency, Duration) Notes Start Date End Date Status Singulair 10 MG 1 tablet in the evening Orally Once a day; Duration: 30 day(s) 01/08/2015 Active Fela *please review f or potential update for e-prescription and drug interaction check* Active Plan Of Treatment No Information Medical (General) History Medical History History ICD Code asthma Surgical History Surgery Date(Month/Year) [facility]
--- OUTSIDE RECORDS SUMMARY | 2025-05-14 10:44 | XMS_ITS | Clinical Summary ---
Author Organization [facility] Address [address] [place] [address] Phone Care Team Providers Care Distribution Supervisor Name Role Phone Josette Mcbride MD Primary Care Provider [phone] Allergies Active Allergy Reactions Criticality Noted Date Comments Gluten Protein GI Upset 06/10/2012 Pineapple Swelling 01/25/2015 On tongue Wheat GI Upset 06/10/2012 Medications levonorgestreL (KYLEENA) 17.5 mcg/24 hrs (5 yrs) 19.5 mg intrauterine deviceIndication s:summer 2019 17.5 mcg by Intrauterine route daily. Indications: summer 2019 Active topiramate (TOPAMAX) 25 MG tabletIndication s:Migraine without aura and without status migrainosus, not intractable Take 1 tablet (25 mg total) by mouth 2 (two) times a day. 180 tablet 3 Active NURTEC ODT 75 mg tablet TAKE 1 TABLET BY MOUTH EVERY OTHER DAY NEEDED FOR MIGRAINE HEADACHE FOR 30 DAYS 3 Active b complex vitamins capsule Take 1 capsule by mouth daily. Active MAGNESIUM CITRATE ORAL Take by mouth. 300-500 mg PO daily Active dicyclomine (BENTYL) 20 mg tablet take 1 tablet by mouth every 6 hours as needed 90 tablet 11 4 Active amoxicillin (AMOXIL) 875 MG tablet Take 1 tablet (875 mg total) by mouth 2 (two) times a day. 14 tablet 4 Active Active Problems Problem Noted Date Diagnosed Date Mild obesity 04/19/2023 Daytime somnolence 03/26/2023 Assessment & Plan (07/30/2023 2:01 PM EDT): Unfortunately I think that she feels rundown because she is run down by working very, very hard. This is not indicative of any medical pathology. 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 female here for complete physical exam. Nonrestorative sleep in setting of 20 lb weight gain suspicious for FARZAD. Discussed what this is. She is already a side sleeper and does not drink EtOH. I recommend a sleep consult. Will also check for low vit D (would not replete unless <20 per VITALS trial), anemia (although unlikely given amenorrhea - and I'm guessing her sister is most likely anemic from menstrual blood loss), hypothyroidism as other possible causes of fatigue. USPSTF A&B recommendations reviewed with pt. BP: WNL BMI: Body mass index is 31.64 kg/m . and anticipate weight loss once she is able to exercise again Pap smears for people age 21-65 with a cervix: does with [employer] STI testing for teens and adults at risk, and at least one lifetime HIV and hep C test: Done previously and normal/negative per pt PrEP for persons at high risk of HIV: N/A plans in the next year: No plans for . Prevention: Kyleena Depression screen: Negative IPV screen in women of reproductive age (or others PRN): Negative Smoking cessation counseling: N/A Alcohol use counseling: N/A LTBI screening in people at increased risk: h/o positive PPD, negative Quantiferon BrCa screening in women/AFAB people at risk: 7-Question Family History Screening Tool and Any relatives with bilateral breast cancer - reports she had negative BrCa testing Vaccinations: up to date Last dental visit: up to date Lipid screening to consider statin for primary prevention for adults 40-75, or at younger ages with risk factors: will check 2/2 BMI Migraine without aura and wi thout status migrainosus, not intractable 08/09/2021 Assessment & Plan (07/30/2023 1:59 PM EDT): Everetteleah is working well for abortive treatment and topiramate has reduced her frequency to what she considers an acceptable level. The neurology clinic spoke to her about riboflavin and she has been taking a B complex instead because she could not find riboflavin alone at the pharmacy. Recommend she look online for this as I doubt a single B complex has enough riboflavin (400 mg) to provide adequate migraine prevention. I do think this will help further reduce migraine frequency and explained that it can take a few months. Assessment & Plan (04/19/2023 4:53 PM EDT): Unfortunately continues to have about 3 LANIER days/week with higher dose of nortriptyline. Discussed trying a higher still dose versus a new medication. She would like to try new medication. Reviewed options including topiramate, blood pressure medicines (beta-blockers, verapamil, candesartan), venlafaxine. Yoly is interested in topiramate and hopes this will also help her lose weight which has proven difficult despite exercise and healthy eating habits. Reviewed risks and benefits including but not limited to paresthesias, word finding difficulties, sedation. Discussed that if a medication is helpful for weight loss it will only remain helpful as long as she takes it. We will start at 25 mg nightly and titrate upward as needed/tolerated to 50 mg twice daily. As for abortive medications, she has had good relief from 2 triptans but both of them make her feel sick. She is interested in seeing if there is a different triptan that works well without causing this problem. We will try 40 mg eletriptan and if this works well but also makes her ill I suggested she try cutting back to 20 mg to see if that is better tolerated. Reviewed the report of May with a sleep and neurology specialist to talk about sleep concerns as well as her migraines and I will see her after that visit. Assessment & Plan (03/12/2023 4:55 PM EDT): We agreed to try increasing her nortriptyline from 50 to 75 mg daily for prevention. She has some 25 mg pills left at home that she can use for this purpose. If this is not enough she will reach out to me for a prescription for 100 mg pills. We discussed the risk of medication overuse headache from to frequent use of abortive treatments. We discussed the importance of taking abortive treatments as early as possible for them to be efficacious. I also recommend trying a new abortive treatment since the tizanidine is only reliably effective at a dose that is too high for her to function at work. Since the sumatriptan was effective but caused bothersome side effects I am hopeful that we can find a different triptan that is equally effective but more tolerable and we will start with a trial of rizatriptan. Assessment & Plan (05/11/2022 9:01 AM EDT): Complete relief with 50 mg nortriptyline nightly. We can continue this as long as necessary. Assessment & Plan (01/03/2022 4:37 PM EST): A higher dose of nortriptyline has helped with sleep but so far not with migraine frequency. However, we agreed to try increasing from 25 to 50 mg, since she is tolerating it very well, to see if this will reduce her headache frequency. Assessment & Plan (10/31/2021 3:58 PM EST): Modest but notable improvement on 10 mg of nortriptyline daily. We will increase to 25 mg of nortriptyline in hopes of further reducing her migraine frequency. Assessment & Plan (08/30/2021 3:02 PM EDT): Patient has had 7 headache days in the last 10 days. I agree with her they certainly sound like migraines and she has been diagnosed with these in the past. Given the frequency of her headaches I believe she would benefit from a controller medicine, as taking abortive medications that frequently will cause medication overuse headaches. I recommend restarting the nortriptyline; she took this for another purpose but it is not effective migraine preventive and she is known to tolerate it well. Magnesium is also fine, but I warned her it may cause diarrhea. Riboflavin 400 mg is a useful migraine preventatives that will take a few months to work and, I cautioned, will discolor her urine harmlessly. I do not think, with the second measures, that she should need to take Flexeril often for the headaches, but she can take it on an occasional basis. Celiac disease IBS (irritable bowel syndrome) Overview (12/14/2020): Probable. Sees Dr. Leo at [facility]. Normal endoscopy and motility study. Assessment & Plan (07/30/2023 2:00 PM EDT): Rx Bentyl for intestinal spasm. This should help with abdominal pain but probably not so much with the irregular bowel movements. I suggested she try a fiber supplement, just being careful to avoid one with wheat in it. Resolved Problems Problem Noted Date Diagnosed Date Resolved Date Adjustment insomnia 10/31/2021 12/19/19 Assessment & Plan (10/31/2021 4:01 PM EST): I hope that a higher dose of nortriptyline will be more sedating. If the Unisom is sometimes helpful, I recommend that she use it only intermittently, to minimize the development of tachyphylaxis. I do recommend that she resume exercising regularly. I think she will find that except on the coldest days, she should warm up enough to feel comfortable once she starts running for a few minutes. Chronic left-sided low back pain with sciatica 08/30/2021 12/19/2022 Assessment & Plan (05/11/2022 9:05 AM EDT): I actually think a physiatry consult is going to be more useful to her than the neurology consult and I am referring her to [facility] for this purpose. In the meantime, she can continue with the tizanidine at bedtime and if the pregabalin is not helping then I see no point in taking it. Assessment & Plan (10/31/2021 3:59 PM EST): Continue physical therapy and home exercise program. Visit with machine bookkeeper later this month sounds promising. Recommend discontinuing Flexeril as patient sees no benefit. We will try a different muscle relaxant in hopes of giving her some relief in the meantime. Assessment & Plan (08/30/2021 3:00 PM EDT): H&P consistent with exacerbation pain from previously herniated disc. I do not appreciate spasm on exam but she says she does feel muscle spasm. We agreed to treat this with some Flexeril and she will work on the back pain in physical therapy. She can continue whichever of the other treatments she has been using that has been helpful. Immunizations Immunization Administration Dates Next Due COVID-19 (Pre-08/19) Moderna Vaccine, mRNA, PF 08/09/2021 Influenza Quadrivalent MDCK Preservative Free IM 08/20/2022 Influenza Quadrivalent Preservative Free IM 08/28,08/17/2020 Influenza Quadrivalent w/ Preservative IM 2020,08/01/2020,08/03/2019 Influenza, Unspecified Formulation 07/30/2022 Family History Medical History Relation Comments Breast cancer Paternal Grandmother bilateral Anemia Sister Relation Status Comments Paternal Grandmother Sister Social History Tobacco Use Types Packs/Day Years Used Date Smoking Tobacco: Never Smokeless Tobacco: Never Tobacco Cessation:Counseling Given: Not Answered Alcohol Use Standard Drinks/Week Comments Not Currently 0 (1 standard drink = 0.6 oz pur e alcohol) Education Answer Date Recorded Are you interested in more education? Not on glo e 02/22/2023 Are you concerned about learning? Not on file 02/22/2023 No 02/22/2023 No 02/22/2023 Digital Access Answer Date Recorded No 03/23/2023 No 03/23/2023 Reliable internet access at home? Not on file 03/23/2023 Device with a working camera? Not on file Comments No Sex and Gender Information Value Date Recorded Sex Assigned at Female 12/14/2020 11:26 AM EST Legal Sex Female 2:10 PM EST Gender Identity Female 12/14/2020 11:26 AM EST Sexual Orientation Bisexual 12/14/2020 11 :26 AM EST Last Filed Vital Signs Vital Sign Reading Time Taken Comments Blood Pressure 116/67 03/12/2024 11:11 AM EDT Pulse 82 03/12/2024 11:11 AM EDT Temperature 36.8 C (98.3 F) 07/30/2023 10:03 AM EDT Respiratory Rate - - Oxygen Saturation 98% 03/12/2024 11: 11 AM EDT Inhaled Oxygen Concentration - - Weight 85.1 kg (187 lb 11.2 oz) 023 10:03 AM EDT Height 168.9 cm (5' 6.5 ) 07/30/2023 10 :03 AM EDT Body Mass Index 29.84 07/30/2023 10:03 AM EDT Plan of Treatment Health Maintenance Due Date Last Done Comments HEPATITIS C SCREENING 2010 HIV ONE-TIME SCREENING (18-65 YEARS) 2010 PAP SMEAR 2013 DEPRESSION SCREENING 12/13/2021 12/13/2020 COVID-19 VACCINE (2023- season) 2024 08/09/2023, 08/20/2022, 09/28/2021, Additional history exists Adult Td,Tdap Booster 10/28/2026 Postpo fay from 1992 (Not Clinically Appropriate) SMOKING STATUS SCREENING (Once After 26 Yrs) Completed 03/12/2024 HEPATITIS A VACCINES Aged Out No long er eligible based on patient's age to complete this topic HIB VACCINES Aged Out No longer eligi ble based on patient's age to complete this topic MENINGOCOCCAL VACCINES (ACWY) Aged Out No longer eligible based on patient's age to complete this topic MENINGOCOCCAL VACCINES (B) Aged Out N o longer eligible based on patient's age to complete this topic PNEUMOCOCCAL VACCINES (0-49 years) Aged Out No longer eligible based on patient's age to complete this topic Medical Devices Not on file Insurance HMO HMO O O HMO O O O [facility] HMO Care Teams Distribution Supervisor Relationship Specialty Start Date End Date Josette Mcbride MD [address] [place] [address] [address] [place] [address] PCP - General Family Medicine 12/14/20 Additional Source Comments The information contained in this document represents components of the legal health record. It is not the complete legal health record.[facility]
--- OUTSIDE RECORDS SUMMARY | 2025-05-14 10:44 | XMS_ITS | Encounter Summary ---
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
--- OUTSIDE RECORDS SUMMARY | 2025-05-14 10:44 | XMS_ITS | Clinical Summary ---
Author Organization [facility] Address [address] [place] [address] Care Team Providers Care Telephone Assembler Name Role Phone Alea Brush MD Primary Care Provider Airam vailable Social History Tobacco Use Types Packs/Day Years Used Date Smoking Tobacco: Never Assessed Sex and Gender Information Value Date Recorded Sex Assigned at Not on file Gender Identity Not on file Sexual Orientation Not on file Plan of Treatment Not on file Care Teams Telephone Assembler Relationship Specialty Start Date End Date Alea Brush MD PCP - General Internal Medicine 07/21/18
== END 2025-05-14 11:16 | disposition home or self-care (01) ==
LOC: HO.HSMS 10:23
PROVIDERS: PCP Family Medicine; Visit Provider Physician Assistant Medical
DX: G47.19 Other hypersomnia (principal); G25.81 Restless legs syndrome; R20.0 Anesthesia of skin; Z82.49 Family history of ischemic heart disease and other diseases of the circulatory system; R20.2 Paresthesia of skin; Z86.69 Personal history of other diseases of the nervous system and sense organs; M54.2 Cervicalgia; G47.9 Sleep disorder, unspecified; R40.0 Somnolence
CPT/HCPCS: 99214; G2211

== ENCOUNTER → 2025-06-10 20:30 | Outpatient (REF) | payer OTHER, SELFPAY ==
--- OUTSIDE RECORDS SUMMARY | 2025-06-10 22:44 | XMS_ITS | Continuity of Care Document ---
Author Organization [facility] Address [address] [facility] [address] [place] [address] Phone [phone] Social History Type Date Description Comments Sex Female Sex Unknown Medical Devices Description No Information Available Encounters Description No Information Available Assessments Description No Information Available Plan of Treatment No Information Available Functional Status Description No Information Available Mental Status Description No Information Available Referrals Description No Information Available
--- OUTSIDE RECORDS SUMMARY | 2025-06-10 22:44 | XMS_ITS | Clinical Summary ---
Author Organization [facility] Address [address] [place] [address] Care Team Providers Care Rubber Stamp Assembler Name Role Phone Alea Brush MD Primary Care Provider Airam vailable Social History Tobacco Use Types Packs/Day Years Used Date Smoking Tobacco: Never Assessed Sex and Gender Information Value Date Recorded Sex Assigned at Not on file Gender Identity Not on file Sexual Orientation Not on file Plan of Treatment Not on file Care Teams Rubber Stamp Assembler Relationship Specialty Start Date End Date Alea Brush MD PCP - General Internal Medicine 07/21/18
--- OUTSIDE RECORDS SUMMARY | 2025-06-10 22:44 | XMS_ITS | Clinical Summary ---
Author Organization [facility] Address [address] [place] [address] Phone Care Team Providers Care Dehydrating Press Operator Name Role Phone Josette Mcbride MD Primary Care Provider [phone] Allergies Active Allergy Reactions Criticality Noted Date [...] age 21-65 with a cervix: does with [employer]LE[employer] TE[employer] STI testing for teens and adults at [...] Overview (12/14/2020): Probable. Sees Dr. Leo at [facility]. Normal endoscopy and motility study. Assessment [...] consult and I am referring her to [facility] for this purpose. In the meantime, she can continue with the tizanidine at bedtime and if the pregabalin is not helping then I see no point in taking it. Assessment & Plan (10/31/2021 3:59 PM EST): Continue physical therapy and home exercise program. Visit with administrative tech later this month sounds promising. Recommend discontinuing [...] HMO O O HMO O O O [facility] HMO Care Teams Dehydrating Press Operator Relationship Specialty Start Date End Date Josette Mcbride MD [address] [place] [address] [address] [place] [address] PCP - General Family Medicine 12/14/20 Additional Source Comments The information contained in this document represents components of the legal health record. It is not the complete legal health record.[facility]
--- OUTSIDE RECORDS SUMMARY | 2025-06-10 22:44 | XMS_ITS | Patient Health Record ---
Author Organization [facility], Address [address] [place] [address] Care Team Providers Care Line Patroller Name Role Phone Kyle VITAL, Torsten Unavailable [...] ICD Code asthma [facility]
--- OUTSIDE RECORDS SUMMARY | 2025-06-10 22:44 | XMS_ITS | Encounter Summary ---
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
== END ==
LOC: HO.SL 20:30
PROVIDERS: PCP Family Medicine; Visit Provider Physician Assistant Medical
DX: G47.19 Other hypersomnia (principal)
CPT/HCPCS: 95810

== ENCOUNTER → 2025-06-10 22:00 | Outpatient (BNV) | payer OTHER, SELFPAY | PROVIDERS: PCP Family Medicine; Visit Provider Psychiatry & Neurology Neurology | DX: R40.0 Somnolence (principal) | CPT/HCPCS: 95810 ==

== ENCOUNTER 2025-07-20 12:33 | Outpatient (AMB) | payer OTHER, SELFPAY ==
--- NOTE | 2025-07-20 12:38 | A.OFFVIS_ITS ---
Vital Signs 07/20/25 12:42 Height 5 ft 7 in Weight 197 lb 8 oz BMI 30.9 BP 110/76 Blood Pressure Location Rt brachial Position Sitting Pulse 82 Pulse Source Pulse Oximeter Pulse Oximetry (%) 100 Oxygen Delivery Method Room Air Intake Visit Reasons: Botox Intake Note: Botox Ultrasound Coordinator Required: No Accompanied by: Self / Same As Patient Allergies gluten Allergy (Severe, Uncoded 10/27/24 14:29) Diarreah pineapple Allergy (Severe, Uncoded 10/27/24 14:29) toung swelling Medication List - Last Reconciled 07/20/25 by Flori Cohen MD cholecalciferol (vitamin D3) 2500 unit capsule every other day orally; 3 months MDD 2500 units every other day gabapentin 200 mg (2 x 100 mg) PO BEDTIME mecobalamin (vitamin B12) 1,000 mcg PO DAILY 1 month MDD 1000mcg onabotulinumtoxinA (Botox) 200 units intradermal ONCE 3 months pregabalin (Lyrica) 25 mg PO BEDTIME 2 months MDD 25mg rimegepant (Nurtec ODT) 75 mg orally daily PRN; 30 days MDD 1 tab tizanidine 4 mg PO BEDTIME MDD 4mg topiramate 100 mg PO DAILY 2 months MDD 100mg HPI Comments Details: ? 34y/o female comes for treatment of migraines with botox. ??? Most frequent reported adverse reactions following injection of botox for chronic migraine include neck pain (9%), headache(5%), eyelid ptosis(4%), migraine(4%), muscular weakness(4%), musculuskeletal stiffness(4%), bronchitis(3%), injection site pain (3%), musculoskeletal pain(3%), myalgia(3%), facial paresis(2%), HTN(2%) and muscle spasms(2%) were discussed in detail. ??? Botulinum toxin typeA 200units Lot no [id number] expiration Aug 2027 was diluted with 4 cc of normal saline . ??? Muscles injected- ??? Frontalis 4 sites ??? Procerus 1 site ??? Circus Hand- 2 sites ??? Temporalis- 8 sites ??? Occipitalis- 6 sites ??? Cervical paraspinals- 4 sites ??? Trapezius- 6 sites- units each ??? 5 units each in 31 site ??? Total use- 155units ??? Discarded-45units [facility] Medical History Chronic migraine w/o aura w/o status migrainosus, not intractable Migraine Surgical History H/O microdiscectomy IUD (intrauterine device) in place Social History Alcohol intake: never Patient Tobacco Use Status: Never used Tobacco Physical Exam Vital Signs: Last Vital Signs Pulse 82 07/20/25 12:42 BP 110/76 07/20/25 12:42 Pulse Ox 100 07/20/25 12:42 Oxygen Delivery Method Room Air 07/20/25 12:42 BMI result Body Mass Index 30.9 Overweight woman looks generally tired, with excessive amounts of bilateral jawline hair. Const General: cooperative, comfortable and no acute distress Nutritional Appearance: overweight Orientation/consciousness: patient oriented x3 HEENT Face and sinus: Yes face symmetric Neck Neck: Yes full ROM and Yes supple Resp Effort & Inspection: normal respiratory effort and able to speak in complete sentences Neuro General: patient oriented x3 Cognition (Neuro): normal cognition Gait exam (Neuro): Normal gait present Motor exam (neuro): 5/5 motor strength present throughout, Pronator motor function not present, no tremor noted and Normal motor muscle tone present throughout Psych Appearance: grossly normal Speech and movement: Normal speech and movement present Thought process: Normal thought process present Office Procedures Botulinum toxin Injection 92797 - Migraine Procedure code (CPT) selection complete Office Meds onabotulinumtoxinA 200 unit solution for injection Performing Provider: Flori Cohen MD [place] [facility] [place] [facility] Administered by: Flori Cohen MD on 07/20/25 13:06 Dose Route Admin Location Dispensed Lot Number Expiration Date [facility] Soup Person 155 unit subcut 200 units [id number] ALLERGAN /BOTOX Total Dispensed Waste 200 units 22.5 % Comments: see HPI Assessment & Plan Assessment & Plan (1) Chronic migraine w/o aura w/o status migrainosus, not intractable: Code(s): G43.709 - Chronic migraine without aura, not intractable, without status migrainosus Category: Medical Plan Patient tolerated the procedure well. she will call with any untoward side effects Orders: Orders AMB Botulinum toxin Injection Today G43.709 - Chronic migraine without aura, not intractable, without status migrainosus Coding Level of Care Code Est Pt Level 1 (34835) Diagnoses Chronic migraine w/o aura w/o status migrainosus, not intractable G43.709 CPT Codes Botox Injection - Botox 3: 77322 - Migraine ([id number])
[2025-07-20 12:42] VITALS: BP 110/76; PULSE 82; O2SAT 100; BMI 30.9
--- OUTSIDE RECORDS SUMMARY | 2025-07-20 15:25 | XMS_ITS | Clinical Summary ---
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 on file [...] Tetanus adult (Td q 10,TDAP once) 2012 Influenza vaccine 05/28/2025 Covid-19 vaccine series (2023- season) 2025 RSV Immunization (1 - 1-dose 75+ series) 2067 Meningococcal B Vaccine Aged Out No l onger eligible based on patient's age to complete this topic Meningococcal Vaccine Aged Out No misty betty eligible based on patient's age to complete this topic Pneumococcal Vaccine (2 - 49 years) Aged Out No longer eligible based on patient's age to complete this topic Insurance on file ICARE on file ICARE on file ICARE on file Care Teams Farm Laborer Relationship Specialty Start Date End Date Zuleika Raza MD PCP - General Internal Medicine 01/18/15
--- OUTSIDE RECORDS SUMMARY | 2025-07-20 15:25 | XMS_ITS | Patient Health Record ---
Author Organization [facility] [place], Address [address] [place] [address] Care Team Providers Care Information Management Officer Name Role Phone Kyle VITAL, Torsten Unavailable [...] ICD Code asthma Surgical [facility]
--- OUTSIDE RECORDS SUMMARY | 2025-07-20 15:25 | XMS_ITS | Clinical Summary ---
Author Organization [facility] Address [address] [place] [address] Phone Care Team Providers Care Hospitality Internship Name Role Phone Josette Mcbride MD Primary Care Provider [phone] Allergies Active Allergy Reactions Criticality Noted Date [...] age 21-65 with a cervix: does with [facility] STI testing for teens and adults at [...] Overview (12/14/2020): Probable. Sees Dr. Leo at [facility]. Normal endoscopy and motility study. Assessment & [...] consult and I am referring her to [facility] for this purpose. In the meantime, she can continue with the tizanidine at bedtime and if the pregabalin is not helping then I see no point in taking it. Assessment & Plan (10/31/2021 3:59 PM EST): Continue physical therapy and home exercise program. Visit with chalk molding machine operator later this month sounds promising. Recommend discontinuing [...] PAP SMEAR 2013 DEPRESSION SCREENING 12/13/2021 12/13/2020 INFLUENZA VACCINE (#1) 2025 , 08/20/2022, 07/30/2022, Additional history exists COVID-19 VACCINE (2024- season) 2025 08/09/2023, 08/20/2022, 09/28/2021, Additional history exists Adult [...] topic Medical Devices Not on file Insurance O O O * Guarantor: Yoly Sanchez Account Type Relation to Patient Date of Phone Billing Address Personal/Family Self 1990 [id number] [facility] [place] Address: [address] [address] Care Teams Hospitality Internship Relationship Specialty Start Date End Date Josette Mcbride MD [address] [place] [address] [email or web address] PCP - General Family Medicine 12/14/20 Additional Source Comments The information contained in this document represents components of the legal health record. It is not the complete legal health record.[facility]
--- OUTSIDE RECORDS SUMMARY | 2025-07-20 15:25 | XMS_ITS | Encounter Summary ---
Author Organization [facility] Address [address] [place] [id number] Care Team Providers Care Proof Plate Maker Name Role Phone Zuleika Raza MD Primary Care Provider + Encounter Details Date Type Department Care Team (Late st Contact Info) Description 04/04/2015 Documentation Medical Dermatology at [address] [employer] [facility] [address] [place] [address] Dianne Irizarry MD PhD [address] [employer] 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
--- OUTSIDE RECORDS SUMMARY | 2025-07-20 15:25 | XMS_ITS | Clinical Summary ---
Author Organization [facility] Address [address] [place] [address] Care Team Providers Care Lumber Hacker Name Role Phone Unavailable Primary Care Provider [...] 3-dose series) 2011 COVID-19 Vaccine ( - season) 2025 Influenza Vaccine Discontinued 09/13/2021, 08/17/2020 HPV Vaccines (No Doses Required) Completed Pneumococcal Vaccine: Pediatric (0-5 Years) and At-Risk Patients (6 to 49 Years) Aged Out No longer eligible b ased on patient's age to complete this topic
--- OUTSIDE RECORDS SUMMARY | 2025-07-20 15:25 | XMS_ITS | Clinical Summary ---
Author Organization [facility] Address [address] [place] [address] Care Team Providers Care Food Supervisor Name Role Phone Alea Brush MD Primary Care Provider Airam vailable Social History Tobacco Use Types Packs/Day Years Used Date Smoking Tobacco: Never Assessed Sex and Gender Information Value Date Recorded Sex Assigned at Not on file Gender Identity Not on file Sexual Orientation Not on file Plan of Treatment Not on file Care Teams Food Supervisor Relationship Specialty Start Date End Date Alea Brush MD PCP - General Internal Medicine 07/21/18
--- OUTSIDE RECORDS SUMMARY | 2025-07-20 15:25 | XMS_ITS | Encounter Summary ---
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
== END 2025-07-20 13:07 | disposition home or self-care (01) ==
LOC: HO.HSMS 12:34
PROVIDERS: PCP Family Medicine; Visit Provider Psychiatry & Neurology Neurology
DX: G43.709 Chronic migraine without aura, not intractable, without status migrainosus (principal)
CPT/HCPCS: 64615

== ENCOUNTER → 2025-07-20 12:33 | Outpatient (BNVA) | payer OTHER, SELFPAY | PROVIDERS: PCP Family Medicine; Visit Provider Psychiatry & Neurology Neurology | DX: G43.709 Chronic migraine without aura, not intractable, without status migrainosus (principal) | CPT/HCPCS: 64615; 99211; J0585 ==

== ENCOUNTER 2025-09-15 11:04 | Outpatient (AMB) | payer BC, SELFPAY ==
--- NOTE | 2025-09-15 11:10 | A.OFFVIS_ITS ---
Vital Signs 09/15/25 11:11 Height 5 ft 7 in Weight 196 lb 6.91 oz BMI 30.8 BP 120/70 Blood Pressure Location Lt brachial Position Sitting Pulse 77 Pulse Source Pulse Oximeter Pulse Oximetry (%) 99 Oxygen Delivery Method Room Air Intake Visit Reasons: Anesthesia of skin Intake Note: new Patient presents today for anesthsia of the skin Accompanied by: Self / Same As Patient Allergies gluten Allergy (Severe, Uncoded 10/27/24 14:29) Diarreah pineapple Allergy (Severe, Uncoded 10/27/24 14:29) toung swelling HPI HPI Anesthesia of skin: Details: New patient eval for raynaud's syndrome and generalized fatigue. Hx of raynaud's syndrome since childhood. Mother has raynaud's syndrome She feels cold in her feet and nose. Fingers may turn white. It occurs few times a day. In the summertime it occurs when she is exposed to the AC. She will cover her nose with a blanket. She uses hand warmers, gloves and wears double socks. Warming will resolve the episode. Generalized malaise. She naps in the day. 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 She feels sick and tired after work. She may wake up with joint pain. She used to go to the gym regularly. She is unable to do so at this time because of the fatigue that she is experiencing. She has ankle swelling. Log Turner in childhood diagnosed her with EDS. She had symptoms of hypermobility, dislocating her joint, ankle instability, skin hyperextensibility. Hx labral repair in left shoulder. After labral repair she has not had recurrent left shoulder dislocation. Bilateral ankles will dislocate when walking. Her regulatory compliance manager has referred her to EDS specialist in [place]. She is experiencing 30 minutes of morning stiffness. She has insomnia. Sleep study reviewed, which was normal. Melatonin is helping. Review of system is significant for 50 lb weight gain, fatigue, weakness, night sweats, redness in eyes, tinnitus, Raynaud's syndrome, excessive thirst, nausea, heartburn, cloudy smoke urine, muscle weakness, muscle tenderness, muscle spasm, joint pain, headache, memory loss, paraesthesia, easily bruising, rash, anxiety and depression. 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 Medical history and medication list reviewed. Past medical history significant for celiac disease, Lyme, PCOS, hypermobile EDS, Raynaud's, IBS, eczema, SIBO. She had microdiskectomy of to discs in year 2021 and 2023. She also had left shoulder labral repair. Her mother has Crohn's disease. Her father has rheumatoid arthritis and gout. 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 [facility] Medical History (Updated 09/15/25 @ 12:38 by Korey Lopez MD) POTS (postural orthostatic tachycardia syndrome) Chronic migraine w/o aura w/o status migrainosus, not intractable Migraine Surgical History H/O microdiscectomy IUD (intrauterine device) in place Social History Alcohol intake: never Patient Tobacco Use Status: Never used Tobacco Physical Exam Exam Exam: General: Comfortable CVS: RRR Respiratory: clear to auscultation bilaterally. Good respiratory effort Skin: No lesions seen, discoloration of fingertips or digital ulceration seen. She has skin hyperextensibility. MSK: No tenderness on palpation of any joints. No synovitis. Normal range of motion of upper extremities and lower extremities. Beighton score ?Passive dorsiflexion and hyperextension of the fifth MCP joint beyond 90? 1 1 2. Passive apposition of the thumb to the flexor aspect of t he forearm 1 1 3. Passive hyperextension of the elbow b eyond 10? 0 0 4. Passive hyperextension of the knee beyond 10? 1 1 5. Active forward flexion of the trunk w ith the knees fully extended so that the palms of the hands rest flat on the floor 1 TOTAL 7 Vital Signs: Last Vital Signs Pulse 77 09/15/25 11:11 BP 120/70 09/15/25 11:11 Pulse Ox 99 09/15/25 11:11 Oxygen Delivery Method Room Air 09/15/25 11:11 BMI result Body Mass Index 30.8 Assessment & Plan Assessment & Plan (1) Raynaud disease: Comment: Since childhood. RODRI negative. Low clinical suspicion for systemic rheumatological autoimmune disease. We discussed management of Raynaud's syndrome. She has been having recurrent episodes daily despite conservative management. We discussed next steps with calcium channel radha. Treatment with amlodipine is indicated. Discussed side effects and benefits. Raynaud's syndrome is not a cause of her generalized malaise/fatigue. Code(s): I73.00 - Raynaud's syndrome without gangrene Category: Medical Plan: Start amlodipine 2.5 mg daily She will have a nurse visit in 1 month for blood pressure check and Raynaud's syndrome update. If she continues to have recurrent symptoms, I will consider increasing amlodipine to 5 mg daily SHAUN panel ordered Return to clinic in 3 months or sooner if needed (2) Benign hypermobility syndrome: Comment: Patient meets diagnosis for hypermobile EDS. We discussed conservative management. Physical rehabilitation is up most importance to help strengthen h er ligaments/tendons around joints. She continues to have recurrent dislocation of her ankles with instability when walking. It is common for hypermobile EDS to also present with polyarthralgias, which may be reason for her pain. She does not have clinical signs or symptoms suggestive of inflammatory arthritis at this time. Code(s): M35.7 - Hypermobility syndrome Category: Medical Plan: PT ordered for ankle strengthening I will consider x-ray of bilateral ankles if she does not have improvement with PT She has been referred to EDS specialist in [place] by her regulatory compliance manager Return to clinic in 3 months (3) Instability of joints of both ankles: Code(s): M25.371 - Other instability, right ankle; M25.372 - Other instability, left ankle Category: Medical Plan: See above Orders: Orders Cyclic Citrullinated Peptide Today I73.00 - Raynaud's syndrome without gangrene Scleroderma 70 Antibody Today I73.00 - Raynaud's syndrome without gangrene Anti-Centromere B Antibodies Today I73.00 - Raynaud's syndrome without gangrene Sjogren's Antibodies Today I73.00 - Raynaud's syndrome without gangrene Rheumatoid Factor Today I73.00 - Raynaud's syndrome without gangrene JUNE 1 Antibody Today I73.00 - Raynaud's syndrome without gangrene PT Evaluation and Treatment Today M25.371 - Other instability, right ankle, M25.372 - Other instability, left ankle, M35.7 - Hypermobility syndrome Medications: New amlodipine 2.5 mg PO DAILY 30 tabs 11RF Coding Level of Care Code New Pt Level 4 (07329) Diagnoses Raynaud disease I73.00 Benign hypermobility syndrome M35.7 Instability of joints of both ankles M25.371; M25.372
[2025-09-15 11:11] VITALS: BP 120/70; PULSE 77; O2SAT 99; BMI 30.8
--- OUTSIDE RECORDS SUMMARY | 2025-09-15 21:53 | XMS_ITS | Encounter Summary ---
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
--- OUTSIDE RECORDS SUMMARY | 2025-09-15 21:53 | XMS_ITS | Clinical Summary ---
Author Organization [facility] Address [address] [place] [address] Care Team Providers Care Milled Rubber Tender Name Role Phone Alea Brush MD Primary Care Provider Airam vailable Social History Tobacco Use Types Packs/Day Years Used Date Smoking Tobacco: Never Assessed Sex and Gender Information Value Date Recorded Sex Assigned at Not on file Gender Identity Not on file Sexual Orientation Not on file Plan of Treatment Not on file Care Teams Milled Rubber Tender Relationship Specialty Start Date End Date Alea Brush MD PCP - General Internal Medicine 07/21/18
--- OUTSIDE RECORDS SUMMARY | 2025-09-15 21:53 | XMS_ITS | Patient Health Record ---
Author Organization [facility] Address [address] [place] [address] Care Team Providers Care Cook Supervisor Name Role Phone Jude Montanez Unavailable [phone] Torsten Alva Unavailable [phone] Allergies Allergen (clinical drug ingredient) Drug/Non Drug Allergy documented on EMR Reaction Allergy Type Onset Date Status gluten, celiac, whea t (uncoded) Unknown Allergy Active Reason For Referral No Information Medications Medication SIG (Take, Route, Fr equency, Duration) Notes Start Date End Date Status Fela Active Singulair 10 MG Tablet 1 tablet in the e vening Orally Once a day; Duration: 30 day(s) 01/08/2015 Active Social History Social History Drugs/Alcohol: Social Info Question Answer Notes Drugs Have you used drugs other than those for medical reasons in the past 12 months? No Plan Of Treatment No Information Insurance Providers Payer Name Payer Address Payer Phone Subscriber Number Group Number Insured Name Patient Relationship to Insured Coverage Start Date Coverage End Date [facility] [address] [place] [address] [id number] Yoly Sanchez Self - patient is the insured Medical (General) History Medical History History ICD Code asthma Surgical History Surgery Date(Month/Year) [facility] 07/2014
--- OUTSIDE RECORDS SUMMARY | 2025-09-15 21:53 | XMS_ITS | Continuity of Care Document ---
Author Organization [facility] Address [address] [facility] [facility] [address] [place] [address] Phone [phone] Social History Type Date Description Comments Sex Female Sex Unknown Medical Devices Description No Information Available Encounters Description No Information Available Assessments Description No Information Available Plan of Treatment No Information Available Functional Status Description No Information Available Mental Status Description No Information Available Referrals Description No Information Available
--- OUTSIDE RECORDS SUMMARY | 2025-09-15 21:53 | XMS_ITS | Clinical Summary ---
Author Organization [facility] Address [address] [place] [address] Care Team Providers Care Fruit Stuffer Name Role Phone Unavailable Primary Care Provider [...]
--- OUTSIDE RECORDS SUMMARY | 2025-09-15 21:53 | XMS_ITS | Encounter Summary ---
Author Organization [facility] Address [address] [place] [phone] Care Team Providers Care Hydraulic Repairer Name Role Phone Zuleika Raza MD Primary Care Provider + Encounter Details Date Type Department Care Team (Late st Contact Info) Description 04/04/2015 Documentation Medical Dermatology at [address] [employer] [facility] [address] [place] [address] Dianne Irizarry MD PhD [address] [place] [phone] Social History Tobacco Use Types Packs/Day Years [...] 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
--- OUTSIDE RECORDS SUMMARY | 2025-09-15 21:53 | XMS_ITS | Patient Health Record ---
Author Organization [facility] [place], Address [address] [place] [address] Care Team Providers Care Dungeon Master Name Role Phone Kyle VITAL, Torsten Unavailable Unavailable Allergies Allergen (clinical drug ingredient) Drug/Non Drug Allergy documented on EMR Reaction Allergy Type Onset Date Status gluten, celiac, whea t (uncoded) Unknown Allergy Active Reason For Referral No Information Medications Medication SIG (Take, Route, Frequency, Duration) Notes Start Date End Date Status Singulair 10 MG Tablet 1 tablet in the evening Orally Once a day; Duration: 30 day(s) 01/08/2015 Active Fela *please review f or potential update for e-prescription and drug interaction check* Active Plan Of Treatment No Information Medical (General) History Medical History History ICD Code asthma [facility]
--- OUTSIDE RECORDS SUMMARY | 2025-09-15 21:53 | XMS_ITS | Data Portability ---
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 Never used electronic cigarettes [id number] Information not available 08/30/2020 What is your exercise level? Moderate [id number] Information not available 08/30/2020 Mental Status Question Answer Note LastModified by Organization D etails LastModified Time Do you feel stressed (tense, restless, nervous, or anxious, or unable to sleep at night)? [id number] Information not available 02/01/2022 Family History Relationship Description Onset Age of this Age Resolved Age Notes LastModified by Organization Details LastModified Time Paternal Grandmother Malignant neoplasm of breast 37 bilate ral breast cancer had double mastec nahed Not available 10/19/2019 15:25:49 Paternal Grandmother Malignant neoplasm of pancreas 50 Not available 09/28 15:26:08 Father History of blood disorder Factor 5 [email or web address] Not available 10/19/2019 15:05:21 Maternal Grandfather Malignant neoplasm of stomach 60 Not available 09/28 15:26:22 Unspecified Relation Malignant neoplasm of breast 58 56 Patern al grandm other' s sister 's daught er Not available 07/05/2020 10:51:12 Unspecified Relation Malignant neoplasm of breast 50 Patern al grandm other' s sister Not available 07/05/2020 10:52:50 Notes:mom and sister has end ometrosis and mom has hashimotos. Medical History Condition Response Anesthesia complications N [...] quadrivalent, preservative 9 completed CINDA Flores in [facility], 06/09/2020 13:48:14 Influenza, split virus, quadrivalent, preservative 0 completed CINDA Matias in [facility], 01/24/2021 15:29:54 COVID-19, mRNA, LNP-S, PF, 30 mcg/0.3 mL dose 1 completed CINDA Matias in [facility], 01/24/2021 15:30:39 COVID-19, mRNA, LNP-S, PF, 30 mcg/0.3 mL dose 1 completed CINDA Flores in [facility], 02/01/2022 15:23:48 COVID-19, mRNA, LNP-S, PF, 100 mcg/0.5mL dose or 50 mcg/0.25mL dose 1 completed CINDA Flores in [facility], 02/01/2022 15:23:58 Influenza, split virus, quadrivalent, preservative 1 completed CINDA Flores in [facility], 02/01/2022 15:24:08 influenza, unspecified formulation 2 completed CINDA Matias in [facility], 02/11/2023 08:47:21 COVID-19, mRNA, LNP-S, PF, 50 mcg/0.5 mL 3 completed Not Available [facility] 06/10/2025 13:02:27 Influenza, MDCK, quadrivalent, PF 2 completed Not Available [facility] 06/10/2025 13:02:27 Influenza, split virus, quadrivalent, PF 3 completed Not Available [facility] 06/10/2025 13:02:27 COVID-19, mRNA, LNP-S, bivalent, PF, 50 mcg/0.5 mL or 25mcg/0.25 mL dose 2 completed Not Available [facility] 06/10/2025 13:02:27 Influenza, split virus, quadrivalent, PF 0 completed Not Available [facility] 06/10/2025 13:02:27 COVID-19, mRNA, LNP-S, PF, 100 mcg/0.5mL dose or 50 mcg/0.25mL dose 1 completed Not Available [facility] 06/10/2025 13:02:27 Past Encounters Encounter ID Performer Location Encounter Start Date Encounter Closed Date Diagnosis/Indication Diagnosis SNOMED-CT Code Diagnosis ICD10 Code Diagnosis IMO Codes Diagnosis Note [id number] MD SHAHNAZ Godfrey MD [address] [place] [address], [address] [place] [address] 10/19/2019 14:44:33 10/19/2019 15:57:29 Specialized medical examination 58668711 Z01.419 Venereal d isease screening 315909958 Z11.3 Anxiety 28561219 F41.9 [id number] MD SHAHNAZ Godfrey MD [address] [place] [address], [address] [place] [address] 04/27/2020 08:36:41 04/27/2020 10:14:21 Dysmenorrhea 920003492 N94.6 [id number] MD SHAHNAZ Godfrey MD [address] [place] [address] [address] [place] [address] 06/09/2020 13:42:01 06/09/2020 14:57:36 Removal of intrauterine device 17776038 Z30.432 Insertion of intrauterine contraceptive device 89119656 Z30.430 [id number] MD SHAHNAZ Godfrey MD [address] [place], [place] [address] [address] 06/15/2020 09:02:13 06/15/2020 10:18:09 Family history of breast cancer 749852587 Z80.3 Family his tory of malignant neoplasm of pancreas 606568906 Z80.0 [id number] MD SHAHNAZ Godfrey MD [address] [place], [place] [address] [address] 07/05/2020 10:30:39 07/05/2020 13:01:32 Family history of breast cancer 964882347 Z80.3 Family his tory of malignant neoplasm of pancreas 803504772 Z80.0 Genetic mutation 2781591 2 R89.8 [facility] malignant neoplasm of breast 9846742799 08108 Z91.89 [id number] MD SHAHNAZ Godfrey MD [address] [place] [address] [place] [address] 07/11/2020 14:03:02 07/11/2020 15:01:27 Abnormal uterine bleeding 2871018168 9100 N92.0 [id number] MD SHAHNAZ Godfrey MD [address] [place], [place] [address] [address] 01/24/2021 15:24:21 01/25/2021 08:36:52 Specialized medical examination 19828803 Z01.419 Venereal d isease screening 166304677 Z11.3 [id number] MD SHAHNAZ Godfrey MD [address] [place], [place] [address] [address] 02/01/2022 15:19:18 02/01/2022 16:00:56 Specialized medical examination 40957064 Z01.419 Venereal d isease screening 081659567 Z11.3 [id number] MD SHAHNAZ Godfrey MD [address] [place], [place] [address] [address] 02/11/2023 08:41:29 02/11/2023 10:34:57 Specialized medical examination 45273972 Z01.419 Venereal d isease screening 311884291 Z11.3 [id number] MD SHAHNAZ Godfrey MD [address],[place] [address] [place] [address] 03/03/2024 13:30:58 03/03/2024 14:18:02 Specialized medical examination 19593226 Z01.419 Venereal d isease screening 862950406 Z11.3 [id number] MD SHAHNAZ Godfrey MD [address] [facility],[place] [address] [place] [address] 05/04/2025 14:21:01 05/04/2025 15:28:43 Removal of intrauterine device 91162189 Z30.432 Insertion of intrauterine contraceptive device 03970323 Z30.430 [id number] MD SHAHNAZ Godfrey MD [address] [facility],[place] [address] [place] [address] 06/10/2025 13:01:48 06/10/2025 14:35:30 Specialized medical examination 88009344 Z01.419 Venereal d isease screening 209013158 Z11.3 Health Concerns Section Related Observation LastModified by Organization Detai ls LastModified Time None Recorded Concern Status LastModified by Organization Details LastModified Time None Recorded Advance Directives Directive Y: Payers Insurance Date Sequence Insurance Name Policy Number Policy Schafer Covered Member ID Schafer Member ID Guarantor Name 06/07/2025 1 [facility] [id number] 1 Xenia Sanchez [id number] Xenia Sanchez Notes Date Note Type Note Provider Name and Address Organization Details Recorded Time 02/01/2022 text/html She is here for annual [...] a new partner. 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 Shahnaz Desir MD [address] [facility],[address], [place], [address], [facility], 02/11/2023 09:38:15 03/03/2024 text/html She is here for annual, doing well, IUD to be removed in 06/21, she does not desire future fertility, she will want another put in at the same time. She had a few partners last year after she broke up, has a new partner now, desires STI blood testing. 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 Shahnaz Desir MD [address], [place], [address], [facility], 03/03/2024 14:05:38 05/04/2025 text/html She is here for IUD removal and replacement, is doing well. Shahnaz Desir MD [address], [place], [address], [facility], 05/04/2025 15:23:52 06/10/2025 text/html She is here for annual, her IUD was just removed and replaced with Kyleena IUD on 05/04/25.She saw an furnishings conservator who diagnosed her with PCOS. Note from 2023: She is here for annual, doing well, IUD to be removed in 06/21, she does not desire future fertility, she will want another put in at the same time.She had a few partners last year after she broke up, has a new partner now, desires STI blood testing. Shahnaz Desir MD [address] [facility],[address], [place], [address], [place] [facility], 06/10/2025 13:32:43 OBGyn Episode No OBEpisode recorded.
--- OUTSIDE RECORDS SUMMARY | 2025-09-15 21:53 | XMS_ITS | Clinical Summary ---
Author Organization [facility] Address [address] [place] [phone] Phone Care Team Providers Care Nitro Worker Name Role Phone Josette Mcbride MD Primary Care Provider [phone] Allergies Active Allergy Reactions Criticality Noted Date [...] age 21-65 with a cervix: does with [facility] STI testing for teens and adults at [...] Overview (12/14/2020): Probable. Sees Dr. Leo at [facility]. Normal endoscopy and motility study. Assessment [...] consult and I am referring her to [facility] for this purpose. In the meantime, she can continue with the tizanidine at bedtime and if the pregabalin is not helping then I see no point in taking it. Assessment & Plan (10/31/2021 3:59 PM EST): Continue physical therapy and home exercise program. Visit with corporate services manager later this month sounds promising. Recommend discontinuing [...] on patient's age to complete this topic IPV VACCINES Aged Out No longer eligi ble [...] Not on file Insurance [place] [address] [place] [address] [place] [facility] [place]: [address] [address] Care Teams Nitro Worker Relationship Specialty Start Date End Date Josette Mcbride MD [address] [place] [address] [email or web address] PCP - General Family Medicine 12/14/20 Additional Source Comments The information contained in this document represents components of the legal health record. It is not the complete legal health record.[facility]
--- OUTSIDE RECORDS SUMMARY | 2025-09-15 21:53 | XMS_ITS | Clinical Summary ---
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
== END 2025-09-15 13:07 | disposition home or self-care (01) ==
LOC: HO.RHES 11:05
PROVIDERS: PCP Family Medicine; Visit Provider Internal Medicine Rheumatology
DX: I73.00 Raynaud's syndrome without gangrene (principal); M35.7 Hypermobility syndrome; M25.371 Other instability, right ankle; M25.372 Other instability, left ankle
CPT/HCPCS: 99204

== ENCOUNTER 2025-10-14 15:12 | Outpatient (REF) | payer BC, SELFPAY ==
--- OUTSIDE RECORDS SUMMARY | 2025-10-14 19:25 | XMS_ITS | Continuity of Care Document ---
Author Organization [facility] Address [address] [facility] [address] [place] [address] Phone [phone] Social History Type Date Description Comments Sex Female Sex Unknown Medical Devices Description No Information Available Encounters Description No Information Available Assessments Description No Information Available Plan of Treatment No Information Available Functional Status Description No Information Available Mental Status Description No Information Available Referrals Description No Information Available
[2025-10-15 14:03] LABS: Antibody to SS-A Antigen <1.0 NEG AI (<1.0 NEG); Antibody to SS-B Antigen <1.0 NEG AI (<1.0 NEG)
== END 2025-10-14 15:13 | disposition home or self-care (01) ==
LOC: HO.HKASLDS 15:12
PROVIDERS: PCP Family Medicine; Visit Provider Internal Medicine Rheumatology
DX: I73.00 Raynaud's syndrome without gangrene (principal); Z01.84 Encounter for antibody response examination
CPT/HCPCS: 36415; 86200; 86235; 86431